=== PATIENT | female | born 1995 | race Two or more races ===

== ENCOUNTER 2022-05-05 09:23 | Outpatient (CLI) | payer BC, SELFPAY ==
--- NOTE | 2022-05-05 09:15 | CRLHL7_ITS ---
For Patients: As a result of the Century Cures Act, medical imaging exams and procedure reports are released immediately into your electronic medical record. You may view this report before your referring provider. If you have questions, please contact your health care provider. INDICATION: Pain TECHNIQUE: Ultrasound pelvis transabdominal and transvaginal for better assessment or to better visualize the endometrium. Real time sonographic images with Spectral and color Doppler imaging of the ovaries were obtained. COMPARISON: None FINDINGS: Uterus: 6.9 centimeter x 3.7 centimeter x 5.07. Normal echotexture of the myometrium. No masses. Endometrium: Transvaginal imaging was performed to better evaluate the endometrium. Millimeters in thickness. No sign of endometrial mass or fluid. Right ovary: 8.6 centimeter x 1.4 centimeter x 3.4 centimeter. No ovarian or adnexal masses. Normal arterial and venous blood flow. Left ovary: 0.7 centimeter x 1.5 centimeter x 2.6 centimeter no ovarian or adnexal masses. Normal arterial and venous blood flow. Cul-de-sac: No significant free fluid. IMPRESSION: Unremarkable pelvic ultrasound. Dictated by Soham Sidhu MD @ 05/05/2022 11:16:40 AM (Electronically Signed)
== END 2022-05-05 09:24 | disposition home or self-care (01) ==
LOC: US 09:25
PROVIDERS: Visit Provider Obstetrics & Gynecology
DX: R10.2 Pelvic and perineal pain (principal)
CPT/HCPCS: 76830; 76856; 93976

== ENCOUNTER 2023-02-08 12:50 | Outpatient (CLI) | payer BC, SELFPAY ==
--- NOTE | 2023-02-08 13:00 | CRLHL7_ITS ---
For Patients: As a result of the Century Cures Act, medical imaging exams and procedure reports are released immediately into your electronic medical record. You may view this report before your referring provider. If you have questions, please contact your health care provider. INDICATION: Evaluate anatomy. COMPARISON: 10/25/2022 TECHNIQUE: Real time downey scale imaging of the fetus was performed as well as color Doppler analysis of the umbilical vessels. FINDINGS: Sonographic imaging demonstrates a single living intrauterine gestation. Fetus demonstrates a regular cardiac rate of 144 beats per minute. Fetus has a longitudinal vertex position. The placenta lies posteriorly without evidence of placenta previa. The edge of the placenta is located 5.4 cm from the internal cervical os. Amniotic fluid volume appears normal. Single deepest vertical pocket: 4.3 cm. The cervix is closed and measures 3.8 cm in length. The composite ultrasound gestational age is calculated at 19 weeks 6 days with an estimated sonographic due date of 06/29/2023. The estimated weight is 313 grams which lies at the 67th %. The following biometric measurements were obtained: Biparietal diameter: 4.6 cm/20 weeks 0 days 73rd% Head circumference: 17.2 cm/19 weeks 5 days 58th% Abdominal circumference: 14.0 cm/19 weeks 3 days 45th% Femur length: 3.7 cm/20 weeks 1 day 71st% The HC/AC ratio measures: 1.22 range (1.08-1.26) On anatomic survey, there is a normal appearance of the cerebral ventricles, cavum septi pellucidi, cisterna magna and cerebellum. The nose, lips, and facial profile appear normal. The cervical, thoracic and lumbar spine are well visualized and appear normal. There is a normal four-chamber heart view and the left and right ventricular outflow tracts appear normal. The diaphragm and stomach appear normal. The kidneys and bladder also appear normal. There is a normal three-vessel cord and cord insertion site. The four extremities appear normal. IMPRESSION: Normal OB ultrasound exam with concordance of clinical and sonographic dating. No intrinsic abnormalities noted on anatomic survey. Dictated by Soham Barrios MD @ 02/09/2023 11:00:49 AM (Electronically Signed)
== END 2023-02-08 12:51 | disposition home or self-care (01) ==
LOC: US 12:51
PROVIDERS: Visit Provider Advanced Practice Midwife
DX: Z34.92 Encounter for supervision of normal pregnancy, unspecified, second trimester (principal); Z3A.19 19 weeks gestation of pregnancy
CPT/HCPCS: 76805

== ENCOUNTER 2023-04-11 10:08 | Outpatient (CLI) | payer BC, SELFPAY | END 2023-04-11 10:09 | disposition home or self-care (01) | LOC: NFLDREF 04-13 04:50 | PROVIDERS: Visit Provider Obstetrics & Gynecology | DX: Z34.93 Encounter for supervision of normal pregnancy, unspecified, third trimester (principal); R05.9 Cough, unspecified; R09.82 Postnasal drip | CPT/HCPCS: 86592 ==

== ENCOUNTER 2023-05-22 10:56 | Outpatient (CLI) | payer BC, SELFPAY | END 2023-05-22 10:57 | disposition home or self-care (01) | PROVIDERS: Visit Provider Obstetrics & Gynecology | DX: L29.9 Pruritus, unspecified (principal); O99.719 Diseases of the skin and subcutaneous tissue complicating pregnancy, unspecified trimester | CPT/HCPCS: 80053; 82239 ==

== ENCOUNTER 2023-05-25 11:24 | Outpatient (CLI) | payer BC, SELFPAY ==
--- NOTE | 2023-05-25 11:30 | CRLHL7_ITS ---
For Patients: As a result of the Century Cures Act, medical imaging exams and procedure reports are released immediately into your electronic medical record. You may view this report before your referring provider. If you have questions, please contact your health care provider. INDICATION: Rule out IUGR TECHNIQUE: Limited transabdominal two-dimensional downey-scale ultrasound examination. COMPARISON: None FINDINGS: There is a living fetus in vertex lie with gestational age of 34 weeks 4 days by LMP and 35 weeks 3 days by today`s measurements. EDC based on LMP is 07/02/2023. BPD: 8.7 cm, 35 weeks 1 day Head circumference: 33.0 cm, 37 weeks 4 days Abdominal circumference: 31.8 cm, 35 weeks 5 days Femur length: 6.5 cm, 33 weeks 2 days The weight is estimated at 2619 grams, the 64th percentile. The heart rate is measured at 134 beats per minute and the rhythm appears regular. The amniotic fluid volume is within normal limits with 4.9 cm. The placenta is posterior and superior to the cervical os. There is no evidence of previa. IMPRESSION: 1. Living fetus in vertex lie with gestational age of 34 weeks 4 days by LMP and 35 weeks 3 days by today`s measurements. EDC based on LMP is 07/02/2023. 2. weight estimated at 2619 grams, the 64th percentile. Dictated by Jani Kline MD @ 05/26/2023 10:28:06 AM (Electronically Signed)
== END 2023-05-25 11:25 | disposition home or self-care (01) ==
LOC: US 11:24
PROVIDERS: Visit Provider Obstetrics & Gynecology
DX: O36.5930 Maternal care for other known or suspected poor fetal growth, third trimester, not applicable or unspecified (principal); Z3A.34 34 weeks gestation of pregnancy
CPT/HCPCS: 76816; 82728

== ENCOUNTER 2023-06-21 16:40 | Inpatient (IN) | payer BC, SELFPAY ==
[2023-06-21] VITALS (9 sets, daily range): BP systolic 92–118; BP diastolic 51–78; PULSE 76–120; TEMP 36.3–36.4; O2SAT 98; BMI 26.6
--- OUTSIDE RECORDS SUMMARY | 2023-06-21 16:44 | XMS_ITS | Patient Health Record ---
Author Name Unknown Organization [facility] Address [address] [place] [address] Care Team Providers Care Circulation Sales Representative Name Role Phone None, No PCP Primary Care Provider UnavailBianka Diego Unavailable [phone] KarineXochitl blood Unavailable [phone] Godwin Daysi Unavailable [phone] Sachi Proctor Unavailable [phone] ALLERGIES No Known Allergies RESULTS Component Value Reference Range Notes Urinalysis, Routine - IH Reviewed date:11/24/2022 11:38:34 AM Interpretation: Performing Lab: Notes/Report: Urine Color light yellow Yellow - Fely Appearance clear Clear - Glucose neg Bilirubin neg Ketone neg Specific [place] 1.010 Blood neg pH 6.0 Protein neg Urobilinogen 0.2 Nitrite neg Leukocytes neg Glucose Bilirubin Ketones Specific [place] Occult Blood pH Protein Urobilinogen Nitrite Leukocytes HEPATITIS C AB W/REFL TO HCV RNA, QN, PCR Reviewed date:12/02/2022 04:51:24 PM Interpretation: Performing Lab:[place], [facility] [id number] [facility], [facility]IpwtTL[address] Chris Gunter Notes/Report: HEPATITIS C ANTIBODY NON-REACTIVE NON-REACTIVE HCV antibody was non-reactive. There is no laboratory evidence of HCV infection. In most cases, no further action is required. However, if recent HCV exposure is suspected, a test for HCV RNA (test code 09280) is suggested. For additional information please refer to http://education.[employer]/faq/FAQ22v 1 (This link is being provided for informational/ educational purposes only.) VARICELLA ZOSTER VIRUS ANTIB EDDIE (IGG) Reviewed date:11/28/2022 12:28:53 PM Interpretation: Performing Lab:[place] [id number] T[address], [employer] EnergyJvwmRB[address] Chris Gunter Notes/Report: VARICELLA ZOSTER VIRUS ANTIBODY (IGG) 940.90 Index Interpretation --------- <135.00 Negative - Antibody not detected 135.00 - 164.99 Equivocal > or = 165.00 Positive - Antibody detected A positive result indicates that the patient has antibody to VZV but does not differentiate between an active or past infection. The clinical diagnosis must be interpreted in conjunction with the clinical signs and symptoms of the patient. This assay reliably measures immunity due to previous infection but may not be sensitive enough to detect antibodies induced by vaccination. Thus, a negative result in a vaccinated individual does not necessarily indicate susceptibility to VZV infection. A more sensitive test for vaccination-induced immunity is Varicella Zoster Virus Antibody Immunity Screen, ACIF. CULTURE, URINE, ROUTINE Reviewed date:12/06/2022 11:12:12 AM Interpretation: Performing Lab:[place] [facility] [id number] Telly, [employer] [id number] Chris Gunter Notes/Report: SPLIT 11/24/2022 FROM [id number], [id number] CULTURE, URINE, ROUTINE SEE NOTE CULTURE, URINE, ROUTINE Micro Number: [id number] Test Status: Final Specimen Source: Urine, clean catch Specimen Quality: Adequate Result: 1,000-9,000 CFU/ML of Group B Streptococcus isolated Beta-hemolytic streptococci are predictably susceptible to Penicillin and other beta-lactams. Susceptibility testing not routinely performed. Please contact the laboratory within 3 days if susceptibility testing is desired. Comment: Erythromycin and clindamycin are not recommended for treatment of urinary tract infections, but clindamycin may be useful for treatment of rectovaginal colonization or infection. Any amount of group B Streptococcus in urine specimens obtained from females is a marker of genital tract colonization. If this patient is , please refer to ACOG guidelines for appropriate screening and management of women. COMMENT: Mixed genital flaca isolated. These superficial bacteria are not indicative of a urinary tract infection. No further organism identification is warranted on this specimen. If clinically indicated, recollect clean-catch, mid-stream urine and transfer immediately to Urine Culture Transport Tube. Pap with reflex HPV if ASCUS (under 30 yrs) Reviewed date:11/28/2022 12:25:07 PM Interpretation: Performing Lab:Per [facility]Darron [id number] Chris Gunter Notes/Report: MULTIPLE TESTING PRIORITIES; ROUTINE TESTING TO FOLLOW. CLINICAL INFORMATION: Pregna nt LMP: PREV. PAP: 2019 PREV. BX: NONE GIVEN SOURCE: Cervix, Endocer vix STATEMENT OF ADEQUACY: Satisfactory for evaluation. Endocervical/transformat ion zone component present. INTERPRETATION/RESULT: Cytology Results: Negative for intraepithelial lesion or malignancy. COMMENT: This Pap test has been evaluated with computer assisted technology. COMMAND CENTER ANALYST: SALINAS HARRIS(ASCP) CT Screening location: [place] [address] COMMENT EXPLANATORY NOTE: The Pap is a screening test for cervical cancer. It is not a diagnostic test and is subject to false negative and false positive results. It is most reliable when a satisfactory sample, regularly obtained, is submitted with relevant clinical findings and history, and when the Pap result is evaluated along with historic and current clinical information. OBSTETRIC PANEL W/FOURTH GEN ERATION HIV Reviewed date:11/28/2022 12:25:41 PM Interpretation: Performing Lab:Per [facility] [id number] [facility] [id number] Chris Gunter Notes/Report: WHITE BLOOD CELL COUNT 8.4 3.8-10.8 Thousand/uL RED BLOOD CELL COUNT 4.92 3.80-5.10 Million/uL HEMOGLOBIN 14.9 11.7-15.5 g/dL HEMATOCRIT 44.3 35.0-45.0 % MCV 90.0 80.0-100.0 fL MCH 30.3 27.0-33.0 pg MCHC 33.6 32.0-36.0 g/dL RDW 12.1 11.0-15.0 % PLATELET COUNT 236 140-400 Thousand/uL MPV 12.2 7.5-12.5 fL ABSOLUTE NEUTROPHILS 5846 1708-1915 cells/uL ABSOLUTE LYMPHOCYTES 7978 179-9049 cells/uL ABSOLUTE MONOCYTES 697 200-950 cells/uL ABSOLUTE EOSINOPHILS 118 15-500 cells/uL ABSOLUTE BASOPHILS 50 0-200 cells/uL NEUTROPHILS 69.6 LYMPHOCYTES 20.1 MONOCYTES 8.3 EOSINOPHILS 1.4 BASOPHILS 0.6 ANTIBODY SCREEN, RBC W/REFL ID, TITER AND AG NO ANTIBODIES DETECTED Reference range No antibodies detected This assay is a screening test for the detection of red blood cell antibodies. The test is not to be used for pretransfusion screening or for the medical management of an alloimmunized . ABO GROUP B RH TYPE RH(D) POSITIVE For additional information, please refer to http://[employer]/faq/XIA570 (This link is being provided for informational/ educational purposes only.) RPR (DX) W/REFL TITER AND CONFIRMATORY TESTING NON-REACTIVE NON-REACTIVE HEPATITIS B SURFACE ANTIGEN NON-REACTIVE NON-REACTIVE For additional information, please refer to http://[employer]/faq/FWY307 (This link is being provided for informational/ educational purposes only.) RUBELLA AB (IGG), IMMUNE STATUS 1.26 Index Interpretation ----- <0.90 Not consistent with immunity 0.90-0.99 Equivocal > or = 1.00 Consistent with immunity The presence of rubella IgG antibody suggests immunization or past or current infection with rubella virus. HIV AG/AB, 4TH GEN NON-REACTIVE NON-REACTIVE HIV-1 antigen and HIV-1/HIV-2 antibodies were not detected. There is no laboratory evidence of HIV infection. PLEASE NOTE: This information has been disclosed to you from records whose confidentiality may be protected by state law. If your state requires such protection, then the state law prohibits you from making any further disclosure of the information without the specific written consent of the person to whom it pertains, or as otherwise permitted by law. A general authorization for the release of medical or other information is NOT sufficient for this purpose. For additional information please refer to http://[employer]/faq/PLG105 (This link is being provided for informational/ educational purposes only.) The performance of this assay has not been clinically validated in patients less than 2 years old. Urinalysis, Routine - IH Reviewed date:12/15/2022 03:14:15 PM Interpretation: Performing Lab: Notes/Report: Urine Color light yellow Yellow - Fely Appearance clearn Clear - Glucose neg Bilirubin neg Ketone neg Specific [place] 1.010 Blood neg pH 8.0 Protein neg Urobilinogen 0.2 Nitrite neg Leukocytes neg Glucose Bilirubin Ketones Specific [place] Occult Blood pH Protein Urobilinogen Nitrite Leukocytes BD Affirm Reviewed date:12/15/2022 11:14:40 AM Interpretation: Performing Lab: Notes/Report: Yeast NEG Negative - Bacterial Vaginosis POS Negative - Trichomoniasis NEG Negative - CULTURE, URINE, ROUTINE Reviewed date:12/19/2022 11:39:23 AM Interpretation: Performing Lab:[place], [facility] [id number], [facility] CenterHkldUS[address] Chris Gunter Notes/Report: CULTURE, URINE, ROUTINE SEE NOTE CULTURE, URINE, ROUTINE Micro Number: [id number] Test Status: Final Specimen Source: Urine, clean catch Specimen Quality: Adequate Result: No Growth BD Affirm Reviewed date:01/09/2023 01:12:01 PM Interpretation: Performing Lab: Notes/Report: Yeast NEG Negative - Bacterial Vaginosis POS Negative - Trichomoniasis NEG Negative - REASON FOR REFERRAL No Information MEDICATIONS Medication SIG (Take, Route, Fr equency, Duration) Notes Start Date End Date Status metroNIDAZOLE 0.75 % 1 applicatorful at bedtime Vaginal Once a day for 5 days 01/11/2023 Ac tive Ritual Active SOCIAL HISTORY Tobacco Use: Social History Observation Description Date Details (start date - stop date) Never Smoker NA - NA Sex Assigned At : Social History Observation Description Sex Assigned At Unknown Tobacco Use/Smoking Question Answer Notes Are you a nonsmoker PROBLEMS Problem Type ICD Code Onset Dates Problem Status W/U Status Risk SNOMED Code Notes Problem Uterine pain (N94.89) Active confirmed Problem Vagina itching (N89.8) Active confirmed Noninflammatory disorder of the vagina (72866229) VITAL SIGNS Blood pressure diastolic 68 mm Hg 01/09/2023 Height 66.25 in 01/09/2023 Blood pressure systolic 90 mm Hg 01/09/2023 Weight 156.4 lbs 01/09/2023 BMI 25.053 kg/m2 01/09/2023 Encounters Encounter Location Date Provider Diagnosis [facility] [address] [place] [address] 01/09/2023 Xochitl Hoffoss [facility] [address] [place] [address] 11/24/2022 Bianka Patel Encounter for supervision of normal first in first trimester Z34.01 ; 8 weeks gestation of Z3A.08 and Encounter for gynecological examination (general) (routine) without abnormal findings Z01.[address] [address] 12/14/2022 Xochitl Hoffoss Cervical discharge N89.8 [facility] [address] [place] [address] 12/14/2022 Xochitl Hoffoss Uterine pain N94.89 [facility] [address] [place] [address] 12/23/2022 Sachi Cardozo Encounter for screening for chromosomal anomalies Z36.[address] [address] 01/09/2023 Xochitl Hoffoss Vagina itching N89.[address] [address] 11/24/2022 Bianka Patel Primigravida in firs t trimester Z34.01 ; History of abnormal cervical Pap smear Z87.42 and 8 weeks gestation of Z3A.[address] [address] 12/23/2022 Sachi Cardozo [address] [address] 01/20/2023 Daysi Connelly Encounter for supervision of normal first , second trimester Z34.[address] [address] 12/14/2022 Xochitl Hoffoss Vaginal discharge N8 9.8 and Uterine pain N94.[address] [address] 12/23/2022 Sachi Carodzo 12 weeks gestation of Z3A.[address] [place] [address] 01/09/2023 Xochitl Ulrich Other specified related conditions, second trimester O26.892 and Other specified noninflammatory disorders of vagina N89.8 [facility] [address] [place] [address] 11/24/2022 Bianka Patel Encounter for supervision of other normal , unspecified trimester Z34.80 and 8 weeks gestation of Z3A.[address] [address] 11/24/2022 Bianka Patel [address] [address] 11/28/2022 Bianka Patel [address] [address] 12/02/2022 Bianka Patel [facility] [address] [place] [address] 12/12/2022 Bianka Patel [facility] [address] [place] [address] 12/15/2022 Xochitl Ulrich [facility] [address] [place] [address] 12/30/2022 Sachi Lease [facility] [address] [place] [address] 12/30/2022 Sachi Lease [facility] [address] [place] [address] [place] [address] 01/11/2023 Xochitl Ulrich [facility] [address] [place] [address] 01/02/2023 Bianka Patel [address] [address] 01/09/2023 Bianka Patel [facility] [address] [place] [address] 01/11/2023 Xochitl Ulrich [facility] [address] [place] [address] 01/13/2023 Bianka Patel [facility] [address] [place] [address] 02/06/2023 Bianka Patel [facility] [address] [place] [address] 02/13/2023 Bianka Patel ASSESSMENTS Encounter Date Diagnosis Assessment Notes Treatment Notes Treatment Clinical Notes 11/24/2022 Encounter for supervision of other normal , unspecified trimester (ICD-10 - Z34.80) 11/24/2022 8 weeks gestation of (ICD-10 - Z3A.08) 11/24/2022 Primigravida in firs t trimester (ICD-10 - Z34.01) Reviewed care/visits, delivery care/delivery hospitals, optional screenings (NT, Panorama, and AFP1) PreTRM, and Horizon genetic carrier screening. Discussed comfort measures for nausea, travel, exercise, nutrition, safe food handling, OTC medication use during , and 1st trimester warning signs. RTC in 4 weeks for routine OB visit. 11/24/2022 History of abnormal cervical Pap smear (ICD-10 - Z87.42) Declined Pap test today Encourage to complete MEAGAN for past medical record for pap test 11/24/2022 8 weeks gestation of (ICD-10 - Z3A.08) 11/24/2022 Encounter for supervision of normal first in first trimester (ICD-10 - Z34.01) 12/14/2022 Vaginal discharge (ICD-10 - N89.8) 12/23/2022 12 weeks gestation o f (ICD-10 - Z3A.12) 12/23/2022 Encounter for screening for chromosomal anomalies (ICD-10 - Z36.0) 01/09/2023 Other specified noninflammatory disorders of vagina (ICD-10 - N89.8) 01/09/2023 Other specified related conditions, second trimester (ICD-10 - O26.892) 20 minutes in chart prep, discussion with patient, exam, plan of care and documenting. 01/20/2023 Encounter for supervision of normal first , second trimester (ICD-10 - Z34.02) 01/09/2023 Vagina itching (ICD-10 - N89.8) 12/14/2022 Uterine pain (ICD-10 - N94.89) Push fluids. Discussed treating for BV will help with uterine cramping. See chiro for MSK evaluation 12/14/2022 Cervical discharge (ICD-10 - N89.8) 12/14/2022 Uterine pain (ICD-10 - N94.89) 11/24/2022 Encounter for gynecological examination (general) (routine) without abnormal findings (ICD-10 - Z01.419) 11/24/2022 8 weeks gestation of (ICD-10 - Z3A.08) 11/24/2022 Other Call for questions or concerns. 35 minutes spent in chart prep, counseling and coordination of care, and documenting clinic visit. 12/14/2022 Other 20 minutes in chart prep, discussion with patient, plan of care, exam and documenting. PLAN OF TREATMENT Pending Test Test Name Order Date Panorama Test 12/23/2022 Insurance Providers Payer Name Payer Address Payer Phone Subscriber Number Group Number Insured Name Patient Relationship to Insured Coverage Start Date Coverage End Date BC [address] MELODIE LEON [phone] [id number] Parminder Guillen Self - patient is the insured MEDICAL (GENERAL) HISTORY Medical History History ICD Code depression/anxiety
--- NOTE | 2023-06-21 17:00 | P.LDBA_ITS ---
Subjective History of Present Illness Date Seen: 06/21/23 Narrative: Patient is being admitted to Labor and Delivery for IOL. She is a 27 year old at 38 3/7 weeks gestation. Her full history and physical was dictated by Dr. PATEL on 06/21/23. Please see this for details. Patient has been dealing with hemorrhoids since the beginning of . She has avoided constipation, utilizing Miralax. She has utilized preparation H products, sitz baths and soaking her bottom in a high concentration of sugar but symptoms have progressively worsened. Patient had to visit ED at [facility] that is close to her house this past Monday06/18/23 due to severe pain. Upon evaluation patient states that OB diamond wheel molder evaluated her and she was told that hemorrhoids were not tense, but they were extremely tender to palpation, she had hydrocortisone suppository placed, and was given Vistaril and discharged home. Patient was unable to work this week and reached out to me to discuss possibility of IOL, as we had already discussed that this was the only real treatment. Upon discussion, I was concerned that she had remained in bed most of the time since Monday after discharge. Upon discussion of risks vs benefits of waiting, both parties understand it reasonable to move forward with IOL at this time. Patient does states that this morning at around 3am she noticed some bleeding associated with hemorrhoid and a slight improvement in pain that allowed mobility. Specific Issues/Plans Transfer from [facility] at 16 4/7 weeks gestation Partner: Guido (He is a Physician) Call CGM for delivery Blood Type: B POSITIVE H&P by CGM on 06/16/23 1. GBS + in urine at NOB -Needs ampicillin in labor, ok with 2. Depression/Anxiety Not on meds and not seeing a therapist, feels it is well managed 3. BV x 2 in early Treated with vaginal and oral flagyl 4. Hemorrhoids, bleed occasionally with wiping OTC measures, increased hydration, tucks pads, anusol, colace/bowel regimen 5. Body itchiness at 34 weeks: CMP and total bile acids normal. Growth US 05/25/23: EFW 64%, SIMONE WNL OB Labs: 11/28/2022 Blood type: B+, antibody screen negative. Hgb: 14.9 Platelets: 236 Rubella: Immune Varicella: Immune RPR: non-reactive HBsAg: non-reactive Hep C: Non-reactive HIV: negative UC: GBS 1,000-9,000 CFU, not indicative of treatment GC/Chlamydia: negative/negative Pap (11/24/2022): NILM Genetic screening: Panorama, Low risk, It's a Boy! IMAGINst trimester: 11/24/2022. 8.4 weeks by LMP, 8.5 weeks gestation by US, MARIA GUADALUPE 07/02/2023 by LMP. FHR 171. Unremarkable findings. COVID: fully vaccinated and boosted 1 time. Flu: 03/10/23 TDAP: 04/25/23 32wk Mental Health: 05/09/2023 RSV vaccine: 05/25/23 OB - Problem Based A/P Additional Plan (1) Hemorrhoids during : Status: Acute (2) Group B streptococcal bacteriuria: Problem details: With NOB labs. No indication for treatment. Does not need GBS swab at 37 weeks Status: Acute (3) Elective induction of labor planned: Status: Acute Plan 1. IOL to start with mechanical dilation, cook catheter in place. If able will start Oxytocin low dose overnight. AROM in the morning. 2. GBS positive by UC at start of . Will start antibiotics per protocol at the start of IV Oxytocin. 3. Pain management as needed overnight planning IV Tylenol, may consider opioids. Patient is planning an epidural. OB Exam Physical Exam Vital signs: Pulse BP Pulse Ox 120 H 118/78 98 06/21/23 16:53 06/21/23 16:53 06/21/23 16:54 Detailed Labor and Delivery Exam Patient Gravid: Yes Dilation (cm): 1 Effacement (%): 60 Cervix position: mid Consistency: soft Tachysystole: No Fetus (Single) Station: -2 Amniotic Membrane Status: intact Heart Rate Baseline: 130 Monitor Accelerations: Present Monitor Decelerations: None Long-Term Variability: Moderate (6-25)
[2023-06-21 18:07] LABS: Basophils Absolute Auto 0.03 K/uL (0.00-0.30); Basophils Percent Auto 0.4 % (0.0-3.0); Eosinophils Absolute Auto 0.07 K/uL (0.00-0.50); Eosinophils Percent Auto 0.9 % (0.0-7.0); Immature Granulocytes Abs Auto 0.02 K/uL (0.00-0.30); Immature Granulocytes Pct Auto 0.2 %; Lymphocytes Absolute Auto 1.99 K/uL (0.90-2.90); Lymphocytes Percent Auto 24.5 % (20-44); Mean Corpuscular HGB Conc 32 gm/dL (32-36); Mean Corpuscular Hemoglobin 28 pg (26-34); Mean Corpuscular Volume 85 fL (80-100); Monocytes Percent Auto 9.4 % (0.0-11.0); Neutrophils Absolute Auto 5.25 K/uL (1.7-7.0); Neutrophils Percent Auto 64.6 % (42.0-72.0); Platelet Count* 200 K/uL (140-440); RDW Coefficient of Variation % 14.7 % (11.5-15.5); Red Blood Count 3.98 m/uL (4.00-5.20); White Blood Count* 8.12 K/uL (4.50-11.00)
[2023-06-21 18:09] LABS: Slide Review Reflex No
[2023-06-21] MEDS: ACETAMINOPHEN INJ 1,000 MG/100 ML VIAL 400 MG IVPB (18:59)
[2023-06-21] MEDS: MORPHINE 10 MG/ML inj IM (19:00)
[2023-06-21] MEDS: hydrOXYzine pamoate 25 MG CAPSULE 100 MG PO (19:00)
[2023-06-21] MEDS: ONDANSETRON 2 MG/ML inj 4 MG IV (19:44)
[2023-06-21] MEDS: AMPICILLIN 2 GM in 0.9 % SODIUM CHLORIDE Mini-bag 100 ML IVPB (21:35)
[2023-06-21] MEDS: OXYTOCIN 30 unit/500 ML in NS 30 UNIT/500 ML BAG IVPB (21:35)
[2023-06-21] MEDS: LACTATED RINGERS 1000 ML 1,000 ML 124 ML IV (21:52)
[2023-06-22] VITALS (130 sets, daily range): BP systolic 83–206; BP diastolic 49–91; PULSE 60–131; TEMP 36.3–37.1; O2SAT 82–100
[2023-06-22] MEDS: AMPICILLIN 1 GM in 0.9 % SODIUM CHLORIDE Mini-bag 100 ML IVPB ×5 (01:36→17:59)
[2023-06-22] MEDS: LACTATED RINGERS 1000 ML 1,000 ML 119 ML IV (03:42)
[2023-06-22] MEDS: ACETAMINOPHEN INJ 1,000 MG/100 ML VIAL 400 MG IVPB (05:01)
--- NOTE | 2023-06-22 07:10 | P.OBPN_ITS ---
Subjective Time Seen by Provider: 07:10 Date Seen: 06/22/23 Narrative: Feeling better Objective Vital Signs: Last Vital Signs Temp 97.6 F 06/22/23 04:15 Pulse 71 06/22/23 06:37 BP 109/66 06/22/23 06:37 Pulse Ox 97 06/22/23 00:24 Pelvic Exam Dilation (cm): 3 Effacement (%): 75 Station: -2 Contractions Monitor mode: External Contraction pattern: Regular Contraction intensity: Moderate Assessment Assessment: induction ongoing Station: -2 Status: Category l Heart Rate Baseline: 120 Ad Terminal Makeup Operator Variability: Moderate (6-25) Monitor Accelerations: Present Monitor Decelerations: None Plan Plan: Cook catheter removed at 530am, IV Oxytocin ongoing. Patient has received antibiotic prophylaxis appropriately overnight. She was able to rest overnight and describes this is the best I have felt in many days. Utilized Morphine, Vistaril and IV acetaminophen overnight. Discussed with patient epidural placement and she would like to complete this prior to AROM. Will consult with general surgery for evaluation of hemorrhoids today or .
[2023-06-22] MEDS: LACTATED RINGERS 1000 ML 1,000 ML 500 ML IV (08:11)
[2023-06-22] MEDS: hydrOXYzine pamoate 25 MG CAPSULE 100 MG PO (09:28)
[2023-06-22] MEDS: MORPHINE 10 MG/ML inj IM (09:28)
[2023-06-22] MEDS: ROPIVACAINE 0.2% 100 ml 100 ML 12 MG EPIDURAL ×3 (11:21→18:53)
--- NOTE | 2023-06-22 11:30 | PM.ANBPRC ---
[facility] Medical History Bacterial vaginosis ?N76.0 - Acute vaginitis (ICD-10) ?B96.89 - Other specified bacterial agents as the cause of diseases classified elsewhere (ICD-10) Hemangioma of abdominal wall ?D18.09 - Hemangioma of other sites (ICD-10) Pap smear abnormality of cervix/human papillomavirus (HPV) positive ?R87.618 - Other abnormal cytological findings on specimens from cervix uteri (ICD-10) Surgical History History of colposcopy ?Z98.890 - Other specified postprocedural states (ICD-10) Social History Narrative: SOCIAL Education: Bachelors Work: [employer], remoted Partner: Guido, Physician Lives with: Guido Pets: dog 2 Abuse: Denies past/present Special Diet: Denies Ok with a blood transfusion: yes Culture or protestant beliefs: denies RISK FACTORS Exercise Times/wk: Walking a few times per week, resistance bands Depression/Anxiety: hx of anxiety; no therapist or medication Mood is feeling Seat Belt Use: Routinely Smoking: Denies past/present Alcohol/day: Denies while ; socially Caffeine: 1st trimester, not since 12 weeks Drug Use: Denies past/present Chicken Pox: Vaccinated, revaccinated as an adult MRSA: Denies What is your current living situation?: I presently have a place to live Problems where you live: no known problems In the past 12 months, utilities in danger of being shut off: no In past 12 months, lack of transportation kept you from medical appts, meetings, work, or getting things needed for daily living: no In the past 12 mos, have been you worried that your food would run out before you had money to buy more?: never true In the past 12 mos, the food you bought just didn't last and you didn't have money to buy more?: never true Smoking Status: Never smoker How often does anyone, including family, friends and others, physically hurt you: never How often does anyone, including family, friends and others, insult or talk down to you: never How often does anyone, including family, friends and others, threaten you with harm: never How often does anyone, including family, friends and others, scream or curse at you: never Little interest or pleasure in doing things: several days Feeling down, depressed, or hopeless: several days Meds Home Medications and Allergies Home Medications Medication Instructions Recorded Confirmed Type PNV 153-FA 400 mcg-om3 35 mg-dha 2 tab PO DAILY 01/19/23 06/21/23 History 25 mg-epa 5 mg-fish oil chew tablet ( Gummies) magnesium oxide 25 mg PO PRN PRN 04/11/23 06/21/23 History Allergies Allergy/AdvReac Type Severity Reaction Status Date / Time No Known Drug Allergies Allergy Verified 06/21/23 20:33 Results Labs Labs: Laboratory Results - last 24 hr 06/21/23 17:57 WBC 8.12 RBC 3.98 L Hgb 11.0 L Hct 34.0 MCV 85 MCH 28 MCHC 32 RDW Coeff of Kiana 14.7 Plt Count 200 Neut % (Auto) 64.6 Lymph % (Auto) 24.5 [place] % (Auto) 9.4 Eos % (Auto) 0.9 Baso % (Auto) 0.4 Neut # (Auto) 5.25 Lymph # (Auto) 1.99 [place] # (Auto) 0.80 Eos # (Auto) 0.07 Baso # (Auto) 0.03 Abs Immat Gran (auto) 0.02 Imm/Tot Granulo (auto) 0.2 Blood Type B Positive Antibody Screen NEGATIVE Vital Signs Vital Signs: Last Vital Signs Temp 98.2 F 06/22/23 08:37 Pulse 93 06/22/23 11:28 BP 126/62 06/22/23 11:28 Pulse Ox 100 06/22/23 11:29 Weight: 77.292 kg Height: 170.18 cm Anesthesia Procedures Epidural Insertion Patient Location: OB Start Time: 10:45 Stop Time: 11:40 Start Date: 06/22/23 Stop Date: 06/22/23 Reason for Block: procedure for pain Patient Position: sitting Performed By: Micah Long Preanesthetic Checklist: IV checked, risks and benefits discussed, surgical consent, monitors and equipment checked, pre-op evaluation, timeout performed and anesthesia consent Prep: chlorhexidine gluconate Monitoring: blood pressure monitoring, continuous pulse oximetry and heart rate Approach: midline Vertebral Space: lumbar (1-5) Epidural Technique: ANURADHA saline Needle Type: Tuohy needle Injection Technique: continuous catheter Needle gauge: 17 Needle Length (cm): 10 cm Needle Insertion Depth (cm): 6 Catheter Gauge: 19 Catheter Type: multi-orifice Catheter at skin depth (cm): 12 Test Dose Result: negative and lidocaine 1.5% with epinephrine 1 to 200,000
[2023-06-22] MEDS: LACTATED RINGERS 1000 ML 1,000 ML 525 ML IV ×2 (11:45→18:19)
--- NOTE | 2023-06-22 12:52 | P.OBPN_ITS ---
Subjective Date Seen: 06/22/23 Narrative: Okay Objective Vital Signs: Last Vital Signs Temp 97.4 F L 06/22/23 11:46 Pulse 67 06/22/23 12:46 BP 101/55 L 06/22/23 12:46 Pulse Ox 100 06/22/23 12:34 Pelvic Exam Dilation (cm): 5 Effacement (%): 75 Station: -2 Contractions Monitor mode: External Contraction pattern: Regular Contraction intensity: Moderate Pitocin Rate (mU/min): 9 Assessment Assessment: induction ongoing Station: -2 Amniotic Membrane Status: AROM Status: Category l Heart Rate Baseline: 115 Retirement Variability: Moderate (6-25) Monitor Accelerations: Present Monitor Decelerations: None Plan Plan: Epidural in place, just AROMed. Has progressed well. Will continue current management.
[2023-06-22] MEDS: PHENYLEPHRINE 100 MCG/ML SYRINGE IVP (13:06)
[2023-06-22] MEDS: fentaNYL 100 MCG/2 ML inj IVP (17:29)
--- NOTE | 2023-06-22 17:54 | PM.ANBPRC ---
[facility] Medical History Bacterial vaginosis ?N76.0 - Acute vaginitis (ICD-10) ?B96.89 - Other specified bacterial agents as the cause of diseases classified elsewhere (ICD-10) Hemangioma of abdominal wall ?D18.09 - Hemangioma of other sites (ICD-10) Pap smear abnormality of cervix/human papillomavirus (HPV) positive ?R87.618 - Other abnormal cytological findings on specimens from cervix uteri (ICD-10) Surgical History History of colposcopy ?Z98.890 - Other specified postprocedural states (ICD-10) Social History Narrative: SOCIAL Education: Bachelors Work: [employer], remoted Partner: Guido, Physician Lives with: Guido Pets: dog 2 Abuse: Denies past/present Special Diet: Denies Ok with a blood transfusion: yes Culture or druze beliefs: denies RISK FACTORS Exercise Times/wk: Walking a few times per week, resistance bands Depression/Anxiety: hx of anxiety; no therapist or medication Mood is feeling Seat Belt Use: Routinely Smoking: Denies past/present Alcohol/day: Denies while ; socially Caffeine: 1st trimester, not since 12 weeks Drug Use: Denies past/present Chicken Pox: Vaccinated, revaccinated as an adult MRSA: Denies What is your current living situation?: I presently have a place to live Problems where you live: no known problems In the past 12 months, utilities in danger of being shut off: no In past 12 months, lack of transportation kept you from medical appts, meetings, work, or getting things needed for daily living: no In the past 12 mos, have been you worried that your food would run out before you had money to buy more?: never true In the past 12 mos, the food you bought just didn't last and you didn't have money to buy more?: never true Smoking Status: Never smoker How often does anyone, including family, friends and others, physically hurt you: never How often does anyone, including family, friends and others, insult or talk down to you: never How often does anyone, including family, friends and others, threaten you with harm: never How often does anyone, including family, friends and others, scream or curse at you: never Little interest or pleasure in doing things: several days Feeling down, depressed, or hopeless: several days Meds Home Medications and Allergies Home Medications Medication Instructions Recorded Confirmed Type PNV 153-FA 400 mcg-om3 35 mg-dha 2 tab PO DAILY 01/19/23 06/21/23 History 25 mg-epa 5 mg-fish oil chew tablet ( Gummies) magnesium oxide 25 mg PO PRN PRN 04/11/23 06/21/23 History Allergies Allergy/AdvReac Type Severity Reaction Status Date / Time No Known Drug Allergies Allergy Verified 06/21/23 20:33 Results Labs Labs: Laboratory Results - last 24 hr 06/21/23 17:57 WBC 8.12 RBC 3.98 L Hgb 11.0 L Hct 34.0 MCV 85 MCH 28 MCHC 32 RDW Coeff of Kiana 14.7 Plt Count 200 Neut % (Auto) 64.6 Lymph % (Auto) 24.5 [place] % (Auto) 9.4 Eos % (Auto) 0.9 Baso % (Auto) 0.4 Neut # (Auto) 5.25 Lymph # (Auto) 1.99 [place] # (Auto) 0.80 Eos # (Auto) 0.07 Baso # (Auto) 0.03 Abs Immat Gran (auto) 0.02 Imm/Tot Granulo (auto) 0.2 Blood Type B Positive Antibody Screen NEGATIVE Vital Signs Vital Signs: Last Vital Signs Temp 97.4 F L 06/22/23 11:46 Pulse 125 H 06/22/23 17:51 BP 126/83 06/22/23 17:51 Pulse Ox 92 06/22/23 17:43 Weight: 77.292 kg Height: 170.18 cm Anesthesia Procedures Epidural Insertion Patient Location: OB Start Time: 17:00 Stop Time: 17:54 Start Date: 06/22/23 Stop Date: 06/22/23 Reason for Block: procedure for pain Patient Position: sitting Performed By: Kenton Aguila Preanesthetic Checklist: IV checked, risks and benefits discussed, surgical consent, monitors and equipment checked, pre-op evaluation, timeout performed and anesthesia consent Prep: chlorhexidine gluconate Monitoring: blood pressure monitoring, continuous pulse oximetry and heart rate Approach: midline Vertebral Space: lumbar (1-5) Needle Type: Tuohy needle Injection Technique: continuous catheter Needle gauge: 17 Needle Length (cm): 10 cm Needle Insertion Depth (cm): 7 Catheter Gauge: 19 Catheter Type: multi-orifice Catheter at skin depth (cm): 13 Test Dose Result: negative and lidocaine 1.5% with epinephrine 1 to 200,000
[2023-06-22] MEDS: LIDOCAINE 2% (PF) 5 ML VIAL EPIDURAL (18:23)
[2023-06-22] MEDS: ROPIVACAINE 0.2 % PF 10 ML INJ 20 MG EPIDURAL (18:23)
--- NOTE | 2023-06-22 20:37 | PM.OBPNL ---
Subjective Date Seen: 06/22/23 Narrative: Tired Objective Vital Signs: Last Vital Signs Temp 98.7 F 06/22/23 19:20 Pulse 100 06/22/23 20:26 BP 112/58 L 06/22/23 20:26 Pulse Ox 100 06/22/23 18:16 Pelvic Exam Dilation (cm): 9 Effacement (%): 100 Station: 0 Contractions Monitor mode: External Contraction pattern: Regular Contraction intensity: Strong/Firm Pitocin Rate (mU/min): 9 Assessment Assessment: induction ongoing Station: 0 Amniotic Membrane Status: AROM Status: Category l Heart Rate Baseline: 120 Skilled Nursing Variability: Moderate (6-25) Monitor Accelerations: Present Monitor Decelerations: Early Plan Plan: Patient had original epidural catheter removed due to poor placement and coverage of pain mostly on her right side only. A new epidural catheter has been placed, then air got trapped in the line and anesthesia had to re evaluate. Pain has been well covered, she does continue to experience pressure discomfort with contractions. Cervix is a rim. Bedside US does show baby to be OP. Will try position changes, talked to her about manual rotation, or just pushing after complete dilation is achieved since OP babies are harder to deliver vaginally but doable. Will plan to re evaluate in 1 hour, hopefully we can start pushing and evaluate descent.
[2023-06-22] MEDS: KETOROLAC 30 MG/ML inj IVP (22:36)
--- NOTE | 2023-06-22 22:41 | W.PM.OBVAGDE ---
OB Procedure Vag Delivery Mother Details Mother Details: The patient is a 27 year-old, 1, Para 0, admitted on 06/21/23 at 38 3/7 Days gestation. For IOL in the setting of thrombosed hemorrhoids with worsening pain, and significantly interfering with mobility. : 1 Para: 1 Weeks Gestation: 38.3 Admission Date: 06/21/23 Additional Details Amniotic Membrane Status: AROM Amniotic Membrane Rupture Date: 06/22/23 Amniotic Membrane Rupture Time: 12:30 Amniotic Membrane Fluid Description: Clear Analgesia/Anesthesia Type: Epidural and Fentanyl Waterbirth: No Pitcoin: Yes Intrapartal Events: Labor Induction Induction Method: Intracervical balloon catheter, per pitocin protocol and AROM Labor Onset: 16:00 Complete: 21:13 Pushin:36 Heart: heart tones during second stage were category 2. Decelerations with progressive descent consistent with head compression. Delivery Details Delivery Date: 06/22/23 Delivery Time: 22:02 Route of delivery: Gender: Male Viability: Alive; Heart Rate Present Position at Delivery: OA Delivery Details: Delivered over intact perineum via spontaneous vaginal delivery. was placed on maternal abdomen.? Cord was clamped and cut after a 30-60 second delay. Nose and mouth were bulb suctioned.? Infant weight pending. 1 Minute Interval Total Score: 8 5 Minute Interval Total Score: 9 Additional Details Shoulder Dystocia: No Placenta Delivery Time: 22:12 Placental Delivery Description: Spontaneous Delivery repair: Vicryl (Right periurethral bleeding, vicryl 4-0 interrupted, small vaginal 1st degree bleeding repaired with chromic 2-0 figure of 8.) and Chromic Procedure Done: Global Blood Loss: 100 Laceration: Periurethral - 1st Degree Episiotomy Description: None Blood Loss Measurement Type: QBL Bakri Used: No Sponge/Need Count Correct: Yes Cord Vessel Description: 3 Vessels Event Summary Status: Mother and were stable after delivery. Disposition: floor
[2023-06-23] VITALS (7 sets, daily range): BP systolic 89–109; BP diastolic 58–72; PULSE 87–106; RESP 15–16; TEMP 36.4–36.7; O2SAT 96–97
[2023-06-23] MEDS: KETOROLAC 30 MG/ML inj IVP ×4 (04:36→22:41)
[2023-06-23 06:37] LABS: Hemoglobin* 9.6 gm/dL (12.0-16.0)
--- NOTE | 2023-06-23 09:05 | PM.OBPNVD1 ---
OB - PN:Subj Subjective Date Seen: 06/23/23 Narrative: Parminder is a 27 y.o. who was admitted to [facility] for induction of labor for thrombosed hemorrhoid. ?She had an uncomplicated NVD.?The patient feels well. ?The pain is well controlled with current medications. ?She has no new complaints. ?She is breast feeding and reports things are going well.? the patient has done well.? Vitals have been stable.? She has remained afebrile.? Has a good appetite, is tolerating a general diet. ?She is voiding without difficulty.? She is passing gas and has not had a bowel movement.?Encouraged BID stool softeners. She is ambulating and denies any dizziness.? Has Small amount of rubra lochia. Patient reported that general surgery was to see her today regarding management of thrombosed hemorrhoid. OB - PN: Obj Exam Physical Exam: Vital signs: Temp Pulse Resp BP Pulse Ox O2 Del Method 97.7 F 88 16 100/65 96 Room Air 06/23/23 06:34 06/23/23 06:34 06/23/23 06:34 06/23/23 06:34 06/23/23 06:34 06/23/23 06:34 Narrative: GENERAL APPEARANCE:? normal affect, alert, no distress MOOD:? appropriate CHEST:? clear to auscultation HEART:? regular rate and rhythm ABDOMEN:? soft, non-tender the uterine fundus is At Umbilicus, Midline and is appropriate for the stage of recovery. PERINEUM:? mild edema of the perineum, there is a Perineal Laceration, that is healing well. EXTREMITIES:? normal and no edema OB - PN: Obj Data Labs Labs: Laboratory Results - last 24 hr 06/23/23 06:17 Hgb 9.6 L OB - PN: A/P Delivery Assessment and Plan (1) care and examination immediately after delivery: Status: Acute (2) Hemorrhoids during : Problem details: General surgery to assess today Status: Acute (3) Lactating mother: Status: Acute (4) Anemia affecting : Status: Acute Plan day: 1 Plan: routine care Comments: Routine care. Anemia. Pt declines iron. Encouraged iron rich foods in diet. Hemorrhoid. General surgery to assess today. Encouraged colace BID. Anticipate discharge tomorrow.
[2023-06-23] MEDS: DOCUSATE SODIUM 100 MG CAPSULE PO (09:18)
--- NOTE | 2023-06-23 10:13 | PM.ANPOST ---
Post Anesthesia Note Post Anesthesia Note Patient seen: Inpatient Respiratory Status: adequate Cardiovascular Status: adequate Mental Status: baseline Pain: adequate Temp: baseline Anesthetic awareness: N/A Complications: none Follow care: none
--- NOTE | 2023-06-23 11:32 | PM.GSCN ---
History of Present Illness Consult details Date Seen: 06/23/23 Consult date: 06/23/23 Narrative: Patient is a 27-year-old female who recently delivered a healthy baby boy. This is her first , which has been complicated by hemorrhoids. She states that around 5 months she developed external bulging tissue and pain. The symptoms started after an episode of vomiting and were worsened by intermittent constipation. She has been eating a high fiber diet and started taking fiber supplements. This is the 1st time that she has ever had hemorrhoids. During the last few weeks of her she had a few flares of external hemorrhoids that were incredibly painful and prevented her from getting up and moving around. The pain was so severe that she was induced for this delivery. A few days earlier she did have rupture of two hemorrhoids with bleeding. She denies any current bleeding or bright red blood with bowel movements. Since her delivery yesterday she does feel like the swelling is still present, but improved. She is not interested in getting any lancing of her hemorrhoids today. Review of Systems Status of ROS: Reports: 6 or more systems reviewed and unremarkable except as noted in History and below [facility] Medical History Bacterial vaginosis ?N76.0 - Acute vaginitis (ICD-10) ?B96.89 - Other specified bacterial agents as the cause of diseases classified elsewhere (ICD-10) Hemangioma of abdominal wall ?D18.09 - Hemangioma of other sites (ICD-10) Pap smear abnormality of cervix/human papillomavirus (HPV) positive ?R87.618 - Other abnormal cytological findings on specimens from cervix uteri (ICD-10) Surgical History History of colposcopy ?Z98.890 - Other specified postprocedural states (ICD-10) Social History Narrative: SOCIAL Education: Bachelors Work: [employer], remoted Partner: Guido Physician Lives with: Guido Pets: dog 2 Abuse: Denies past/present Special Diet: Denies Ok with a blood transfusion: yes Culture or orthodoxy beliefs: denies RISK FACTORS Exercise Times/wk: Walking a few times per week, resistance bands Depression/Anxiety: hx of anxiety; no therapist or medication Mood is feeling Seat Belt Use: Routinely Smoking: Denies past/present Alcohol/day: Denies while ; socially Caffeine: 1st trimester, not since 12 weeks Drug Use: Denies past/present Chicken Pox: Vaccinated, revaccinated as an adult MRSA: Denies What is your current living situation?: I presently have a place to live Problems where you live: no known problems In the past 12 months, utilities in danger of being shut off: no In past 12 months, lack of transportation kept you from medical appts, meetings, work, or getting things needed for daily living: no In the past 12 mos, have been you worried that your food would run out before you had money to buy more?: never true In the past 12 mos, the food you bought just didn't last and you didn't have money to buy more?: never true Smoking Status: Never smoker How often does anyone, including family, friends and others, physically hurt you: never How often does anyone, including family, friends and others, insult or talk down to you: never How often does anyone, including family, friends and others, threaten you with harm: never How often does anyone, including family, friends and others, scream or curse at you: never Little interest or pleasure in doing things: several days Feeling down, depressed, or hopeless: several days Meds Home Medications and Allergies Home Medications Medication Instructions Recorded Confirmed Type PNV 153-FA 400 mcg-om3 35 mg-dha 2 tab PO DAILY 01/19/23 06/21/23 History 25 mg-epa 5 mg-fish oil chew tablet ( Gummies) magnesium oxide 25 mg PO PRN PRN 04/11/23 06/21/23 History Allergies Allergy/AdvReac Type Severity Reaction Status Date / Time No Known Drug Allergies Allergy Verified 06/21/23 20:33 Exam Narrative: Exam Narrative: General: Alert and oriented, no acute distress Respiratory: Equal breath rise bilaterally, maintained on room air CV: Well perfused : Normal external female genitalia. Vaginal bleeding apparent. Cluster of external hemorrhoids right lateral and left lateral. I am able to pinch the tissue without significant discomfort. No evidence of any thrombosed hemorrhoids, necrosis or infection. Internal exam deferred at this time. Const: Vital Signs, click to edit/add: Vital Signs - 24 hr 06/22/23 11:34 06/22/23 11:36 06/22/23 11:38 Temperature Pulse Rate 75 72 86 Pulse Rate [Pulse Oximeter] Respiratory Rate Blood Pressure 120/68 112/64 119/59 L Blood Pressure [Le ft Arm] Pulse Oximetry [facility] 06[facility]/23 11:39 06/22/23 11:40 06/22/23 11:42 Temperature Pulse Rate 95 97 Pulse Rate [Pulse Oximeter] Respiratory Rate Blood Pressure 118/66 112/65 Blood Pressure [Le ft Arm] Pulse Oximetry [facility] 06/22/23 11:44 06/22/23 11:46 06/22/23 11:46 Temperature 97.4 F L Pulse Rate 80 69 Pulse Rate [Pulse Oximeter] Respiratory Rate Blood Pressure 114/68 112/63 Blood Pressure [Le ft Arm] Pulse Oximetry [facility] 06/22/23 11:48 06/22/23 11:49 06/22/23 11:50 Temperature Pulse Rate 71 67 Pulse Rate [Pulse Oximeter] Respiratory Rate Blood Pressure 105/64 108/65 Blood Pressure [Le ft Arm] Pulse Oximetry [facility] 06/22/23 11:52 06/22/23 11:54 06/22/23 11:56 Temperature Pulse Rate 72 86 69 Pulse Rate [Pulse Oximeter] Respiratory Rate Blood Pressure 106/63 111/69 113/63 Blood Pressure [Le ft Arm] Pulse Oximetry [facility] 06/22/23 11:58 06/22/23 11:59 06/22/23 12:00 Temperature Pulse Rate 69 81 Pulse Rate [Pulse Oximeter] Respiratory Rate Blood Pressure 104/62 104/64 Blood Pressure [Le ft Arm] Pulse Oximetry [facility] 06/22/23 12:04 06/22/23 12:05 06/22/23 12:09 Temperature Pulse Rate 75 Pulse Rate [Pulse Oximeter] Respiratory Rate Blood Pressure 98/55 L Blood Pressure [Le ft Arm] Pulse Oximetry 100 97 [facility] 06/22/23 12:10 06/22/23 12:14 06/22/23 12:15 Temperature Pulse Rate 89 67 Pulse Rate [Pulse Oximeter] Respiratory Rate Blood Pressure 95/62 99/57 L Blood Pressure [Le ft Arm] Pulse Oximetry [facility] 06/22/23 12:19 06/22/23 12:21 06/22/23 12:24 Temperature Pulse Rate 71 Pulse Rate [Pulse Oximeter] Respiratory Rate Blood Pressure 103/60 Blood Pressure [Le ft Arm] Pulse Oximetry 100 [facility] 06/22/23 12:25 06/22/23 12:29 06/22/23 12:31 Temperature Pulse Rate 94 71 Pulse Rate [Pulse Oximeter] Respiratory Rate Blood Pressure 102/63 118/70 Blood Pressure [Le ft Arm] Pulse Oximetry [facility] 06/22/23 12:34 06/22/23 12:36 06/22/23 12:42 Temperature Pulse Rate 73 71 Pulse Rate [Pulse Oximeter] Respiratory Rate Blood Pressure 112/68 98/55 L Blood Pressure [Le ft Arm] Pulse Oximetry 100 [facility] 06/22/23 12:46 06/22/23 13:02 06/22/23 13:09 Temperature Pulse Rate 67 82 60 Pulse Rate [Pulse Oximeter] Respiratory Rate Blood Pressure 101/55 L 89/52 L 96/60 Blood Pressure [Le ft Arm] Pulse Oximetry [facility] 06/22/23 13:13 06/22/23 13:14 06/22/23 13:16 Temperature Pulse Rate 71 71 76 Pulse Rate [Pulse Oximeter] Respiratory Rate Blood Pressure 97/52 L 101/55 L 100/59 L Blood Pressure [Le ft Arm] Pulse Oximetry [facility] 06/22/23 13:18 06/22/23 13:20 06/22/23 13:22 Temperature Pulse Rate 71 67 62 Pulse Rate [Pulse Oximeter] Respiratory Rate Blood Pressure 99/58 L 97/55 L 93/51 L Blood Pressure [Le ft Arm] Pulse Oximetry [facility] 06/22/23 13:24 06/22/23 13:26 06/22/23 13:43 Temperature Pulse Rate 66 64 69 Pulse Rate [Pulse Oximeter] Respiratory Rate Blood Pressure 100/59 L 100/62 83/49 L Blood Pressure [Le ft Arm] Pulse Oximetry [facility] 06/22/23 13:57 06/22/23 14:12 06/22/23 14:27 Temperature Pulse Rate 67 66 70 Pulse Rate [Pulse Oximeter] Respiratory Rate Blood Pressure 98/53 L 98/53 L 97/55 L Blood Pressure [Le ft Arm] Pulse Oximetry [facility] 06/22/23 14:43 06/22/23 14:57 06/22/23 15:28 Temperature Pulse Rate 67 74 85 Pulse Rate [Pulse Oximeter] Respiratory Rate Blood Pressure 95/51 L 111/69 103/65 Blood Pressure [Le ft Arm] Pulse Oximetry [facility] 06/22/23 15:42 06/22/23 15:57 06/22/23 16:28 Temperature Pulse Rate 89 83 88 Pulse Rate [Pulse Oximeter] Respiratory Rate Blood Pressure 119/73 117/71 116/73 Blood Pressure [Le ft Arm] Pulse Oximetry [facility] 06/22/23 16:43 06/22/23 16:57 06/22/23 17:05 Temperature Pulse Rate 120 H 97 96 Pulse Rate [Pulse Oximeter] Respiratory Rate Blood Pressure 136/84 116/76 121/71 Blood Pressure [Le ft Arm] Pulse Oximetry [facility] 06/22/23 17:09 06/22/23 17:15 06/22/23 17:19 Temperature Pulse Rate 94 112 H 112 H Pulse Rate [Pulse Oximeter] Respiratory Rate Blood Pressure 134/74 122/76 129/83 Blood Pressure [Le ft Arm] Pulse Oximetry [facility] 06/22/23 17:24 06/22/23 17:29 06/22/23 17:32 Temperature Pulse Rate 103 H 116 H 130 H Pulse Rate [Pulse Oximeter] Respiratory Rate Blood Pressure 117/83 108/76 120/81 Blood Pressure [Le ft Arm] Pulse Oximetry [facility] 06/22/23 17:33 06/22/23 17:36 06/22/23 17:38 Temperature Pulse Rate 131 H Pulse Rate [Pulse Oximeter] Respiratory Rate Blood Pressure 149/72 H Blood Pressure [Le ft Arm] Pulse Oximetry 96 100 [facility] 06/22/23 17:38 06/22/23 17:38 06/22/23 17:38 Temperature Pulse Rate 129 H Pulse Rate [Pulse Oximeter] Respiratory Rate Blood Pressure 206/79 H Blood Pressure [Le ft Arm] Pulse Oximetry 82 L Oxygen Delivery [facility] 06/22/23 17:43 06/22/23 17:43 06/22/23 17:44 Temperature Pulse Rate 116 H Pulse Rate [Pulse Oximeter] Respiratory Rate Blood Pressure 132/91 H Blood Pressure [Le ft Arm] Pulse Oximetry 100 92 Oxygen Delivery [facility] 06/22/23 17:45 06/22/23 17:48 06/22/23 17:50 Temperature Pulse Rate 122 H 129 H 121 H Pulse Rate [Pulse Oximeter] Respiratory Rate Blood Pressure 142/90 H 140/78 H 128/82 Blood Pressure [Le ft Arm] Pulse Oximetry Oxygen Delivery [facility] 06/22/23 17:51 06/22/23 17:56 06/22/23 17:58 Temperature Pulse Rate 125 H 122 H 116 H Pulse Rate [Pulse Oximeter] Respiratory Rate Blood Pressure 126/83 146/60 H 134/70 Blood Pressure [Le ft Arm] Pulse Oximetry Oxygen Delivery [facility] 06/22/23 17:59 06/22/23 18:02 06/22/23 18:04 Temperature Pulse Rate 111 H 115 H 117 H Pulse Rate [Pulse Oximeter] Respiratory Rate Blood Pressure 137/67 127/71 145/80 H Blood Pressure [Le ft Arm] Pulse Oximetry [facility] 06/22/23 18:06 06/22/23 18:11 06/22/23 18:14 Temperature 97.4 F L Pulse Rate 106 H 105 H Pulse Rate [Pulse Oximeter] Respiratory Rate Blood Pressure 129/73 128/73 Blood Pressure [Le ft Arm] Pulse Oximetry 99 Oxygen Delivery [facility] 06/22/23 18:16 06/22/23 18:20 06/22/23 18:24 Temperature Pulse Rate 113 H 100 Pulse Rate [Pulse Oximeter] Respiratory Rate Blood Pressure 140/82 H 121/79 Blood Pressure [Le ft Arm] Pulse Oximetry 100 Oxygen Delivery [facility] 06/22/23 18:29 06/22/23 18:34 06/22/23 18:40 Temperature Pulse Rate 96 107 H 104 H Pulse Rate [Pulse Oximeter] Respiratory Rate Blood Pressure 127/82 130/80 135/80 Blood Pressure [Le ft Arm] Pulse Oximetry Oxygen Delivery [facility] 06/22/23 18:55 06/22/23 19:11 06/22/23 19:20 Temperature 98.7 F Pulse Rate 100 104 H Pulse Rate [Pulse Oximeter] Respiratory Rate Blood Pressure 122/71 123/81 Blood Pressure [Le ft Arm] Pulse Oximetry [facility] 06/22/23 19:29 06/22/23 19:41 06/22/23 19:56 Temperature Pulse Rate 106 H 96 96 Pulse Rate [Pulse Oximeter] Respiratory Rate Blood Pressure 124/58 L 110/60 104/63 Blood Pressure [Le ft Arm] Pulse Oximetry Oxygen Delivery [facility] 06/22/23 20:10 06/22/23 20:26 06/22/23 20:41 Temperature Pulse Rate 93 100 99 Pulse Rate [Pulse Oximeter] Respiratory Rate Blood Pressure 101/58 L 112/58 L 101/63 Blood Pressure [Le ft Arm] Pulse Oximetry Oxygen Delivery [facility] 06/22/23 22:25 06/22/23 22:40 06/22/23 22:55 Temperature Pulse Rate 100 96 86 Pulse Rate [Pulse Oximeter] Respiratory Rate Blood Pressure 118/58 L 117/58 L 114/57 L Blood Pressure [Le ft Arm] Pulse Oximetry Oxygen Delivery [facility] 06/22/23 23:16 06/22/23 23:25 06/22/23 23:40 Temperature Pulse Rate 95 103 H 109 H Pulse Rate [Pulse Oximeter] Respiratory Rate Blood Pressure 109/69 104/55 L 99/57 L Blood Pressure [Le ft Arm] Pulse Oximetry Oxygen Delivery [facility] 06/22/23 23:55 06/23/23 00:10 06/23/23 01:16 Temperature Pulse Rate 111 H 100 Pulse Rate [Pulse Oximeter] 104 H Respiratory Rate 16 Blood Pressure 105/64 104/58 L Blood Pressure [Le ft Arm] 109/72 Pulse Oximetry 96 Oxygen Delivery [facility] Room Air 06/23/23 06:34 Temperature 97.7 F Pulse Rate Pulse Rate [Pulse Oximeter] 88 Respiratory Rate 16 Blood Pressure Blood Pressure [Le ft Arm] 100/65 Pulse Oximetry 96 Oxygen Delivery [facility] Room Air Results Labs Labs: Abnormal lab results 06/23/23 Range/Units 06:17 Hgb 9.6 L (12.0-16.0) gm/dL All other labs normal. Progress Note:A&P Assessment and plan (1) External hemorrhoids without complication: Status: Acute Assessment and Plan: Patient is a 27-year-old female with multiple resolving thrombosed external hemorrhoids. We discussed the natural history of thrombosed hemorrhoids with the pain being greatest in the 1st 48-72 hours and then tapering off over time. I told her that if I can pinch the hemorrhoid without significant pain, she is likely on the ?down slope? of the pain curve. In this situation I leave the hemorrhoids alone, rather than giving her a surgical wound to heal. She does understand that following resolution of a thrombosed hemorrhoid a skin tag may result which can be addressed if bothersome to the patient. At this time I would recommend that she continue with a high-fiber diet/fiber supplementation/increased liquid intake. I have also prescribed stool softeners, senna to be taken b.i.d.. Sitz baths were encouraged as needed for comfort. She can apply external witch jace tuck pads and lidocaine jelly as needed for comfort. For follow-up in surgery clinic as needed.
[2023-06-23] MEDS: SENNOSIDES 1 TAB TABLET PO (20:36)
[2023-06-24] MEDS: KETOROLAC 30 MG/ML inj IVP (04:39)
[2023-06-24] MEDS: DOCUSATE SODIUM 100 MG CAPSULE PO (08:19)
[2023-06-24] MEDS: IBUPROFEN 600 MG TABLET PO (08:19)
[2023-06-24 09:09] VITALS: BP 104/69; PULSE 80; RESP 16; TEMP 36.5; O2SAT 95
--- NOTE | 2023-06-24 09:33 | P.DS_ITS ---
DS: Providers Provider Time Seen by Provider: 09:33 Date Seen: 06/24/23 Date of admission: 06/21/23 16:40 Primary care physician: Not a Local Provider Admitting Clinician: Shama Quiles MD Attending Physician on discharge: Shama Quiles MD Date of Discharge: 06/24/23 DS: Diagnosis Discharge Diagnosis (1) External hemorrhoids without complication: Status: Acute (2) Lactating mother: Status: Acute (3) care and examination immediately after delivery: Status: Acute (4) Elective induction of labor planned: Status: Acute (5) Acute blood loss anemia: Status: Acute Exam Narrative: Exam Narrative: Physical exam: General: No acute distress Psych: Alert and oriented x4, full affect HEENT: Normocephalic, atraumatic Neck: No cervical adenopathy, no thyromegaly Heart: Regular rate and rhythm, no murmur rub or gallop Lungs: Clear to auscultation bilaterally Abdomen: Normoactive bowel sounds, soft, no tenderness, rebound, or guarding, no masses, no hepatosplenomegaly, no hernias Skin: No lesions or rashes Breasts: no nodules or masses, no nipple discharge, no axillary adenopathy Lower extremities: No edema or erythema Pelvic exam: Scant bleeding on pad Const: Vital Signs, click to edit/add: Vital Signs - 24 hr 06/23/23 12:19 06/23/23 16:12 06/23/23 20:22 Temperature 97.5 F L 98.0 F 97.8 F Pulse Rate [Pulse Oximeter] 89 106 H 104 H Respiratory Rate 16 15 16 Blood Pressure [Le ft Arm] 103/66 106/68 89/59 L Pulse Oximetry 96 96 Oxygen Delivery [facility] Room Air Room Air 06/23/23 23:53 06/24/23 09:09 Temperature 97.9 F 97.7 F Pulse Rate [Pulse Oximeter] 87 80 Respiratory Rate 16 16 Blood Pressure [Le ft Arm] 99/62 104/69 Pulse Oximetry 97 95 Oxygen Delivery [facility] Room Air Room Air OB - DS: Summary Hospital Course Hospital Course: The patient is a 27 year old G 1 P 1001 at 38 weeks 4 days gestation that was admitted to the Center on 06/21/23 for elective induction of labor due to painful hemorrhoids. She had an uncomplicated vaginal delivery. She delivered a viable male . She is breast feeding. the patient has done well. She is anemic from acute blood loss anemia but currently asymptomatic. Overnight patient had no complaints. Her pain is well controlled on oral pain medications. She is tolerating a regular diet. She has passed flatus. She is ambulating without difficulty. Lochia is scant. She is urinating without clarke. Patient denies chest pain, SOB, n/v, headache, RUQ pain, vision changes, dizziness. Time spent discussing smoking cessation with patient: 3 to 10 minutes Infant Gender: Male Time Spent with Patient Time attestation: Total time spent providing and/or coordinating discharge services: Discharge Plan Discharge Disposition: Home, Self-Care Date of Admission: 06/21/23 16:40 Attending Provider on Discharge: Mandie Black Primary Care Provider: Provider,Not a Local Condition: Stable Anticipated Discharge Date/Time: 06/24/23 09:42 Discharge Medications: New senna 8.6 mg capsule 8.6 mg PO BID PRN (Reason: constipation) Qty: 90 0RF Rx Instructions: Take to avoid constipation. Can decrease to once daily and/or stop if having >2 stools per day. lidocaine 4 % cream 1 applic topical QID PRN (Reason: pain) Qty: 30 0RF Rx Instructions: Apply to anal area as needed for pain control. Dermoplast (with menthol) 20-0.5 % Aerosol 1 spray topical QID PRN (Reason: skin irritation) 30 Days Qty: 78 1RF acetaminophen 500 mg Tablet 1,000 mg PO Q6H PRN30 Days Qty: 60 0RF docusate sodium 100 mg Capsule 100 mg PO DAILY 30 Days Qty: 30 0RF ibuprofen 600 mg Tablet 600 mg PO Q6H PRN30 Days Qty: 60 0RF Lanolin (HPA) 100 % Cream 1 applic topical Q1H PRN90 Days Qty: 21 0RF sennosides [Senna Lax] 8.6 mg Tablet 8.6 mg PO BID 30 Days Qty: 60 0RF simethicone 80 mg Tablet,Chewable 80 - 160 mg PO Q4H PRN (Reason: gas) 30 Days Qty: 60 0RF lidocaine 4 % cream 1 applic topical QID PRN (Reason: pain) Qty: 25 0RF ferrous sulfate 27 mg iron tablet 27 mg PO QMWF 30 Days Qty: 13 0RF Continued magnesium oxide 240 mg magnesium powder in packet 25 mg PO PRN PRN Gummies 400 mcg-35 mg- 25 mg-5 mg tablet,chewable 2 tab PO DAILY Patient Comments: 4 gummies by mouth daily ferrous sulfate 325 mg (65 mg iron) tablet 325 mg PO Q OTHER DAY Qty: 30 3RF Discharge Orders: Discharge Order (Routine); Ordered 06/24/23 Ordered By: Mandie Black Additional Instructions: A prescription of stool softeners has been sent to the pharmacy. Decrease to once daily or stop if having greater than 2 stools per day. Please continue to drink fluids throughout the day and take your daily fiber supplement. For your hemorrhoids soak in a sitz bath twice daily for comfort. Apply external witch jace and lidocaine gel as needed for pain control. If you have hemorrhoid pain that is worsening or concerns regarding bleeding please contact the General Surgery clinic to make an appointment [phone]. Discharge instructions were reviewed with the patient including signs and symptoms of infection and home going medications. Lifting Restrictions: 20 pounds for [address] while taking narcotic pain medication: Approximately 1 week. Off Work or School for 6 weeks. Nothing vaginally for 6 weeks Symptoms to report to doctor: -Bleeding that saturates more than one pad per hour ?-Passing clots larger than the size of a golf ball ?-Pain not relieved by prescribed medication ?-Fever above 100.4 degrees Fahrenheit ?-A foul vaginal odor ?-Difficulty in emotions, mood and functions ?-Thoughts of hurting yourself and/or ?-Painful, reddened area in your breast ?-Any drainage, redness or tenderness in your IV/epidural site ?-Severe headache that doesn't improve after taking medications ?-Changes in vision, including temporary loss of vision, blurred vision, and/or light sensitivity ?-Upper abdominal pain (usually under ribs on the right side) ?-Decrease in urination or painful, frequent urinating ?-Chest pain ?-Shortness of breath ?-Tenderness or pain with redness and/swelling in the calf(s) of your leg Follow Up with a [facility] provider: * 2 week visit: Answer concerns for infant care, screen for postp artum anxiety/depression. * 6 week visit: Annual exam. consultation services are available to all mothers and babies for the first year after delivery.? To make an appointment, please call [phone]. Follow Up Appointments: Provider,Not a Local [Primary Care Provider] - Forms: [email or web address] Info Instructions
== END 2023-06-24 11:30 | disposition home or self-care (01) | DRG 560 ==
PROVIDERS: Admitting Provider Obstetrics & Gynecology; Visit Provider Obstetrics & Gynecology
DX: O70.0 First degree perineal laceration during delivery (principal); O71.82 Other specified trauma to perineum and vulva; Z3A.38 38 weeks gestation of pregnancy; Z37.0 Single live birth; O99.824 Streptococcus B carrier state complicating childbirth; O22.43 Hemorrhoids in pregnancy, third trimester; O87.2 Hemorrhoids in the puerperium; O99.344 Other mental disorders complicating childbirth; F41.9 Anxiety disorder, unspecified; F32.A Depression, unspecified; R03.0 Elevated blood-pressure reading, without diagnosis of hypertension; O90.81 Anemia of the puerperium; D62 Acute posthemorrhagic anemia
CPT/HCPCS: 01967; 36415; 59200; 76815; 85018; 85025; 86850; 86900; 86901; A9270; C1726; J0131; J0290; J0665; J1885; J2270; J2371; J2405; J2795; J3010; J7120

== ENCOUNTER 2024-08-14 09:08 | Outpatient (CLI) | payer OTHER, SELFPAY ==
--- NOTE | 2024-08-14 09:15 | CRLHL7_ITS ---
For Patients: As a result of the Cures Act, medical imaging exams and procedure reports are released immediately into your electronic medical record. You may view this report before your referring provider. If you have questions, please contact your health care provider. OB ULTRASOUND INDICATION: Dating and viability. TECHNIQUE: Real time grayscale imaging of the fetus was performed. Transvaginal. LMP: 06/16/2024. MARIA GUADALUPE by LMP: 03/23/2025. GA: 8 w, 3 d. Previous US: No. CRL: 0.9 cm. 7 w 0 d. MARIA GUADALUPE: 04/02/2025. FHR: 123 BPM. Gestational sac: 2.2 cm. Yolk sac: 3.3 mm. Right ovary: 4.3 x 2.3 x 2.7 cm. CL. Left ovary: 3.4 x 1.7 x 1.7 cm. IMPRESSION: 1. Single living intrauterine with sonographic gestational age 7 weeks 0 days and sonographic due date 04/02/2025. 2. Incidental corpus luteal cyst right ovary. 3. Right-sided subchorionic hemorrhage measures 1.9 x 1.0 x 1.5 cm. Soham Barrios M.D. Diagnostic Radiologist [email or web address] [email or web address]/Dictated by: Soham Barrios MD @ 08/14/2024 1:02:00 PM (Electronically Signed)
== END 2024-08-14 09:09 | disposition home or self-care (01) ==
LOC: US 09:09
PROVIDERS: Visit Provider Registered Nurse
DX: Z34.91 Encounter for supervision of normal pregnancy, unspecified, first trimester (principal); O20.9 Hemorrhage in early pregnancy, unspecified; O34.81 Maternal care for other abnormalities of pelvic organs, first trimester; N83.11 Corpus luteum cyst of right ovary; Z3A.01 Less than 8 weeks gestation of pregnancy
CPT/HCPCS: 76817; 83021; 86703; 86706; 86803; 86850; 86900; 86901; 87086; 87340; 87491; 87591

== ENCOUNTER 2024-08-14 10:11 | Outpatient (CLI) | payer OTHER, SELFPAY ==
[2024-08-14 14:44] LABS: Chlamydia DNA Amplified* NOT DETECTED (No Detected); GC DNA Amplified* NOT DETECTED (No Detected)
== END 2024-08-14 10:12 | disposition home or self-care (01) ==
PROVIDERS: Visit Provider Registered Nurse
DX: Z34.81 Encounter for supervision of other normal pregnancy, first trimester (principal)
CPT/HCPCS: 83020; 83021; 85660; 86592; 86703; 86704; 86706; 86762; 86787; 86803; 86850; 86900; 86901; 87086; 87340; 87491; 87591

== ENCOUNTER 2024-09-12 09:58 | Outpatient (CLI) | payer OTHER, SELFPAY | END 2024-09-12 09:59 | disposition home or self-care (01) | PROVIDERS: Visit Provider Obstetrics & Gynecology | DX: Z34.81 Encounter for supervision of other normal pregnancy, first trimester (principal) | CPT/HCPCS: 86644; 86645 ==

== ENCOUNTER 2024-10-16 09:37 | Outpatient (CLI) | payer OTHER, SELFPAY | END 2024-10-16 09:38 | disposition home or self-care (01) | LOC: FRMREF 09:39 | PROVIDERS: Visit Provider Obstetrics & Gynecology | DX: B34.9 Viral infection, unspecified (principal) | CPT/HCPCS: 87497 ==

== ENCOUNTER 2024-12-04 13:19 | Outpatient (CLI) | payer OTHER, SELFPAY ==
--- NOTE | 2024-12-04 13:00 | CRLHL7_ITS ---
For Patients: As a result of the Century Cures Act, medical imaging exams and procedure reports are released immediately into your electronic medical record. You may view this report before your referring provider. If you have questions, please contact your health care provider. OB ULTRASOUND SURVEY MARIA GUADALUPE by US: 04/02/2025. GA: 23 w, 0 d. INDICATION: anatomy scan. TECHNIQUE: Real time downey scale imaging of the fetus was performed. Evaluate anatomy. Transabdominal imaging performed. position: Vertex, breech, multiple positions. Cervix: Visualized. Technique: Transabdominal. Length of closed cervix: 5.6 cm. Placenta/cord: Posterior. Technique: Transabdominal. Placenta tip to internal OS: 8.9 cm. Umbilical Cord: 3-vessel cord. Placenta insertion: Marginal (within 2 cm of placenta edge). Amniotic Fluid: 4.2 cm SDP (greater than/equal to: 2- less than 8 cm). SURVEY: Observed Structures. Calvarium/Spine: Cerebellum: 2.6 cm, 25 w 1 d. Cisterna Magna: 6.0 mm. Nuchal Fold: 4.6 mm. Lateral Ventricle: 6.8 mm. CSP: Yes. Midline Falx: Yes. Choroid Plexus: Yes. Spine: Yes. Abdomen: Stomach: Yes. Abd Cord Insertion: Yes. Urinary Bladder: Yes. Kidneys: Yes. Diaphragm: Yes. Face: Nose/lips: Yes. Orbital view: Yes. Profile: Yes. Limbs: Upper Extremities: Yes. Lower Extremities: Yes. Hands: Yes. Feet: Yes. Vascular: 4-Chamber Heart: Yes. LVOT: Yes. RVOT: Yes. 3VV: Yes. 3VTV: Yes. BPD: 5.7 cm. 23 w, 2 d, 56%. HC: 21.0 cm. 23 w, 1 d, 39%. AC: 19.5 cm. 24 w, 1 d, 79%. FL: 3.9 cm. 22 w, 4 d, 26%. FL/AC ratio: 20.09%. HC/AC ratio: 1.08. heart rate: 145 bpm. age by this US: 23 w, 5 d. MARIA GUADALUPE by this US: 03/28/2025. EFW: 596.30 g. Weight: 1 lbs, 5 oz. Percentile by MARIA GUADALUPE: 66%. COMMENTS: There is marginal cord insertion with insertion 1 cm from the placental edge. IMPRESSION: 1. Single live intrauterine gestation at 23 weeks 5 days and MARIA GUADALUPE of 03/28/2025. 2. Estimated weight 596 grams which lies at the 66th percentile. 3. No gross anomalies visualized. 4. Marginal cord insertion with the insertion located 1 cm from the placental edge. Anu Galeano M.D. Diagnostic/Breast Radiologist [email or web address] FREDERICK/jackie mejia/Dictated by: Anu Galeano MD @ 12/09/2024 9:20:00 AM (Electronically Signed)
== END 2024-12-04 13:20 | disposition home or self-care (01) ==
LOC: US 13:19
PROVIDERS: Visit Provider Obstetrics & Gynecology
DX: O43.192 Other malformation of placenta, second trimester (principal); Z3A.23 23 weeks gestation of pregnancy
CPT/HCPCS: 76805

== ENCOUNTER 2025-01-02 13:12 | Outpatient (CLI) | payer OTHER, SELFPAY ==
--- NOTE | 2025-01-02 13:00 | CRLHL7_ITS ---
For Patients: As a result of the Century Cures Act, medical imaging exams and procedure reports are released immediately into your electronic medical record. You may view this report before your referring provider. If you have questions, please contact your health care provider. OB ULTRASOUND FOLLOW-UP/LIMITED, 01/02/2025 CLINICAL HISTORY: Marginal cord insertion. COMPARISON: 12/04/2024, 08/14/2024. TECHNIQUE: Realtime downey scale imaging of the fetus was performed. Transabdominal imaging performed. FINDINGS: MARIA GUADALUPE by US: 04/02/2025. GA: 27 weeks 1 day. Gestation: Single. Cervix: Not visualized. Positioning: Breech, multiple. Amniotic Fluid: 7.4 cm SDP. Placenta: Technique: TA. Placenta Position: Posterior. Dopplers: Heart Rate: 135 bpm. BIOMETRY: BPD: 7.1 cm, 28 weeks 4 days. 84.2% HC: 27.0 cm, 29 weeks 3 days. 88.9% AC: 24.7 cm, 29 weeks 0 days. 89.2% FL: 5.0 cm, 26 weeks 6 days. 25.8% FL/AC Ratio: 20.15% HC/AC Ratio: 1.09. EFW: 1200 grams, 2 lb 10 oz. Age by this US: 28 weeks 3 days. MARIA GUADALUPE by this US: 03/24/2025. Percentile by MARIA GUADALUPE: 81.6% IMPRESSION: 1. Sonographic gestational age 28 weeks 3 days and sonographic due date 03/24/2025. Sonographic age is 9 days ahead of the clinical age. 2. Estimated weight 82nd percentile. Abdominal circumference 89th percentile. Soham Barrios M.D. Diagnostic Radiologist [email or web address] Transcribed: 4:15 pm DW/Dictated by: Soham Barrios MD @ 01/02/2025 2:40:00 PM (Electronically Signed)
== END 2025-01-02 13:13 | disposition home or self-care (01) ==
LOC: US 13:12
PROVIDERS: Visit Provider Obstetrics & Gynecology
DX: O43.192 Other malformation of placenta, second trimester (principal); O36.5920 Maternal care for other known or suspected poor fetal growth, second trimester, not applicable or unspecified; Z3A.27 27 weeks gestation of pregnancy
CPT/HCPCS: 76816

== ENCOUNTER 2025-01-02 14:11 | Outpatient (CLI) | payer OTHER, SELFPAY | END 2025-01-02 14:12 | disposition home or self-care (01) | LOC: NFLDREF 01-07 14:02 | PROVIDERS: Visit Provider Obstetrics & Gynecology | DX: O43.192 Other malformation of placenta, second trimester (principal); Z3A.27 27 weeks gestation of pregnancy | CPT/HCPCS: 86592 ==

== ENCOUNTER 2025-02-12 11:20 | Outpatient (CLI) | payer OTHER, SELFPAY ==
--- NOTE | 2025-02-12 11:45 | CRLHL7_ITS ---
For Patients: As a result of the Century Cures Act, medical imaging exams and procedure reports are released immediately into your electronic medical record. You may view this report before your referring provider. If you have questions, please contact your health care provider. OB ULTRASOUND FOLLOW-UP/LIMITED, 02/12/2025 CLINICAL HISTORY: Marginal cord insertion. TECHNIQUE: Real time downey scale imaging of the fetus was performed. Transabdominal imaging performed. COMPARISON: 01/02/2025, 12/04/2024. FINDINGS: MARIA GUADALUPE by US: 04/02/2025. GA: 33 weeks 0 days. Gestation: Single. Cervix: Not visualized. Positioning: Vertex. Amniotic Fluid: 5.3 cm SDP. Placenta: Technique: TA. Placenta Position: Fundal, posterior. Dopplers: Heart Rate: 135 bpm. BIOMETRY BPD: 8.2 cm, 33 weeks 1 day. 46% HC: 30.9 cm, 34 weeks 3 days. 52% AC: 29.5 cm, 33 weeks 4 days. 66% FL: 6.1 cm, 31 weeks 6 days. 13% FL/AC Ratio: 20.80% HC/AC Ratio: 1.05. EFW: 2117 grams, 4 lb 11 oz. Age by this US: 33 weeks 2 days. MARIA GUADALUPE by this US: 03/31/2025. Percentile by MARIA GUADALUPE: 44% IMPRESSION: 1. Single living intrauterine measures 33 weeks 2 days and sonographic due date 03/31/2025. Good correlation with dates. Normal interval growth. 2. Estimated weight 44th percentile. Abdominal circumference 66th percentile. Soham Barrios M.D. Diagnostic Radiologist [email or web address] Transcribed: 2:25 pm DW/Dictated by: Soham Barrios MD @ 02/12/2025 12:49:00 PM (Electronically Signed)
== END 2025-02-12 11:21 | disposition home or self-care (01) ==
PROVIDERS: Visit Provider Obstetrics & Gynecology
DX: O43.193 Other malformation of placenta, third trimester (principal); Z3A.33 33 weeks gestation of pregnancy
CPT/HCPCS: 76816

== ENCOUNTER 2025-02-26 11:10 | Outpatient (CLI) | payer OTHER, SELFPAY | END 2025-02-26 11:11 | disposition home or self-care (01) | PROVIDERS: Visit Provider Obstetrics & Gynecology | DX: L29.9 Pruritus, unspecified (principal); O99.713 Diseases of the skin and subcutaneous tissue complicating pregnancy, third trimester | CPT/HCPCS: 82239; 84450; 84460 ==

== ENCOUNTER 2025-03-05 13:01 | Outpatient (CLI) | payer OTHER, SELFPAY ==
[2025-03-06 18:11] LABS: Strep B DNA Probe Negative (Negative)
[2025-03-08 16:30] LABS: Strep B Susceptibility Needed? No
== END 2025-03-05 13:02 | disposition home or self-care (01) ==
PROVIDERS: Visit Provider Obstetrics & Gynecology
DX: L29.9 Pruritus, unspecified (principal); O99.713 Diseases of the skin and subcutaneous tissue complicating pregnancy, third trimester
CPT/HCPCS: 82239; 84450; 84460; 87081; 87653

== ENCOUNTER 2025-03-11 12:09 | Outpatient (CLI) | payer OTHER, SELFPAY | END 2025-03-11 12:10 | disposition home or self-care (01) | LOC: NFLDREF 12:10 | PROVIDERS: Visit Provider Obstetrics & Gynecology | DX: O99.713 Diseases of the skin and subcutaneous tissue complicating pregnancy, third trimester (principal); L29.9 Pruritus, unspecified | CPT/HCPCS: 82239; 84450; 84460 ==

== ENCOUNTER 2025-03-19 12:54 | Inpatient (IN) | payer OTHER, SELFPAY ==
[2025-03-19] VITALS (76 sets, daily range): BP systolic 78–147; BP diastolic 45–79; PULSE 71–133; RESP 18–25; TEMP 36.3–36.6; O2SAT 92–99; BMI 26.3
[2025-03-19] MEDS: LACTATED RINGERS 1000 ML 1,000 ML 123 ML IV (14:08)
[2025-03-19 14:12] LABS: Hematocrit* 41.3 % (33.0-51.0); Hemoglobin* 13.9 gm/dL (12.0-16.0); Immature Granulocytes Abs Auto 0.03 K/uL (0.00-0.30); Immature Granulocytes Pct Auto 0.3 %; Mean Corpuscular HGB Conc 34 gm/dL (32-36); Mean Corpuscular Hemoglobin 30 pg (26-34); Mean Corpuscular Volume 90 fL (80-100); RDW Coefficient of Variation % 13.7 % (11.5-15.5); Red Blood Count* 4.57 m/uL (4.00-5.20); White Blood Count* 10.75 K/uL (4.50-11.00)
[2025-03-19] MEDS: OXYTOCIN 30 unit/500 ML in NS 30 UNIT/500 ML BAG IVPB (14:15)
[2025-03-19 14:16] LABS: Lymphocytes Absolute Auto 1.90 K/uL (0.90-2.90); Slide Review Reflex No
--- NOTE | 2025-03-19 16:30 | W.PM.LDBA ---
Subjective History of Present Illness Date Seen: 03/19/25 Narrative: Patient is being admitted to Labor and Delivery for labor augmentation. She is a 29 year old at 38 0/7 weeks gestation. Her full history and physical was dictated by Dr. PATEL on 03/11/25. Please see this for details. Patient was seen in clinic earlier today for routine appointment. Found with external hemorrhoids significantly swollen and protruded similar to her first baby. She has tried many different interventions so far- all preparation H products, steroid cream, sitz baths etc.. This past week pain has significantly limited her mobility; she is unable to carry her toddler and is spending most of the day in bed. She has been experiencing intermittent uterine contractions, cervix checked today and found favorable. Discussed risks vs benefits of waiting another week vs considering it reasonable to proceed with augmentation today. My concerns are the same as in the past, if she is not moving and spending a week in bed she can be at increased risk for blood clots. Also, one of the hemorrhoids did open and she has a scab that looks to have a yellowish discharge, currently no systemic sign of infection-but concern for infection should also be taken into consideration. After shared decision making decision was made to proceed with labor augmentation today. Specific Issues/Plans G 2 P 1 :Guido (he trained with Dr PATEL's ) They live in [place]. H&P by JORGE 03/11/25 #Marginal cord insertion Growth US at 28 and 34 weeks - See below. Both growth US WNL. #Disproportionate femur length - 13%ile < 26%ile < 26%ile - Discussed technically normal finding, likely normal variant (short fetus, margin of error of test) - low likelihood of FGR, acondroplasia, skeletal dysplasia etc. [x] Pt requested level 2 US/MFM [x] f/u Level 2 - normal, nothing further recommended # Itching - AST 51, ALT normal on 03/05 [x] f/u AST/ALT and bile acids: Bile acids 4 (normal) [x ] repeat AST/ALT at next visit: bile acids 4 normal - Liver enzymes NORMAL on 03/11 - AST 26, ALT 18 # First child born with asymptomatic CMV. They inquired referral to Infectious Disease and/or antibody testing. CMV antibody testing ordered 09/12/24 CMV IgG and IgM positive, FU avidity testing c/w infectious episode more than 6 months ago, not associated with current . # History of depression and anxiety. Currently well-managed without medication. # Hepatitis B non immune- given 09/12/24 # Rubella nonimmune. Recommend vaccine. Imagin. 12/04/24 FAS: Variable Lie, SDP 4.2cm. Post. placenta w/o previa. 3 vessel cord with marginal insertion. EFW: 596g, 1#5oz, 66%. No anatomic abnormalities identified. 2. 01/02/25 f/U for EFW: Breech, SDP 7.4cm. EFW: 81.6%, 1200g, 2#10oz. 3. 02/12/25: EFW 2117g at 44%ile - BPD 46%, HC 52%, AC 66%, FL 13%. FHR 135bpm, MVP 5.3cm, vertex. 4. Level 2: Normal visualized anatomy. EFW 2434 g at 53rd percentile, AC 78%. Femur is measured at 63.7 mm, no percentile given. Right lateral placenta, no previa. MVP 4.8 cm. Nothing further recommended. Vaccinations: Flu: 03/05/25 Covid: Completed, not up-to-date. Booster given 02/12. Tdap: 01/29/2025 RSV: 05/25/23 Hep B: 09/12/2024 32 week mental health: 01/29/2025 Last pap: [Only high-risk abnormal pap results in problem list] OB - Problem Based A/P Additional Plan (1) Hemorrhoids during : Status: Acute (2) Marginal insertion of umbilical cord affecting management of mother in second trimester: Status: Acute (3) : Status: Acute Plan 1. IV Oxytocin started, plan to recheck cervix and AROM when able. 2. GBS negative, no need for antibiotic prophylaxis. 3. Plans epidural for pain management. 4. After her last delivery hemorrhoid pain did improve with conservative measures and she did not need surgical intervention. She did complete general surgery consult at that time, will re evaluate need for repeat consult after delivery. 5. Continuous monitoring, episode were baseline did increase to 160, IVFs started and baseline is back to normal. Will continue close monitoring. OB Exam Physical Exam Vital signs: Temp Pulse Resp BP Pulse Ox 97.9 F 83 18 110/57 L 96 03/19/25 14:50 03/19/25 15:50 03/19/25 14:50 03/19/25 15:50 03/19/25 15:50 Detailed Labor and Delivery Exam Patient Gravid: yes Dilation (cm): 2 Effacement (%): 60 Cervix position: mid Consistency: soft Contraction Frequency: Irregular Tachysystole: No Contraction intensity: Mild Fetus (Single) Station: -2 Amniotic Membrane Status: intact Heart Rate Baseline: 135 Monitor Accelerations: Present Monitor Decelerations: None Fci Variability: Moderate (6-25)
[2025-03-19] MEDS: ROPIVACAINE 0.2% 100 ml 100 ML 12 MG EPIDURAL (17:15)
[2025-03-19] MEDS: PHENYLEPHRINE 100 MCG/ML SYRINGE IVP ×8 (17:17→22:31)
[2025-03-19] MEDS: BUPIVACAINE 0.25% PF 10 ML 10 ML ML EPIDURAL (17:22)
--- NOTE | 2025-03-19 17:26 | P.ANBPRC_ITS ---
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) Lactating mother ?Z39.1 - Encounter for care and examination of lactating mother (ICD-10) External hemorrhoids without complication ?K64.4 - Residual hemorrhoidal skin tags (ICD-10) Uterine pain ?N94.89 - Other specified conditions associated with female genital organs and menstrual cycle (ICD-10) Noninflammatory disorder of vagina ?N89.9 - Noninflammatory disorder of vagina, unspecified (ICD-10) Bacterial vaginosis ?N76.0 - Acute vaginitis (ICD-10) ?B96.89 - Other specified bacterial agents as the cause of diseases classified elsewhere (ICD-10) Hemangioma of abdominal wall ?D18.09 - Hemangioma of other sites (ICD-10) Pap smear abnormality of cervix/human papillomavirus (HPV) positive ?R87.618 - Other abnormal cytological findings on specimens from cervix uteri (ICD-10) Surgical History History of colposcopy ?Z98.890 - Other specified postprocedural states (ICD-10) Family History Son CMV (cytomegalovirus infection) Social History Narrative: SOCIAL Education: Bachelors Work: n/a Partner: Guido, Physician Lives with: Guido and child Pets: dog 2 Abuse: Denies past/present Special Diet: Denies Ok with a blood transfusion: yes Culture or rastafarian beliefs: denies RISK FACTORS Depression/Anxiety: hx of anxiety; no therapist or medication Smoking: Denies past/present Alcohol/day: Deniesly Drug Use: Denies past/present Chicken Pox: Vaccinated, revaccinated as an adult MRSA: Denies What is your current living situation?: I presently have a place to live Problems where you live: no known problems In the past 12 months, utilities in danger of being shut off: no In past 12 months, lack of transportation kept you from medical appts, meetings, work, or getting things needed for daily living: no In the past 12 mos, have been you worried that your food would run out before you had money to buy more?: never true In the past 12 mos, the food you bought just didn't last and you didn't have money to buy more?: never true Smoking Status: Never smoker How often does anyone, including family, friends and others, physically hurt you : never How often does anyone, including family, friends and others, insult or talk down to you: never How often does anyone, including family, friends and others, threaten you with harm: never How often does anyone, including family, friends and others, scream or curse at you: never Meds Home Medications and Allergies Home Medications ?Medication ?Instructions ?Recorded ?Confirmed ?Type docosahexaenoic acid 200 mg mg PO 08/14/24 03/19/25 Hi story capsule ( DHA) magnesium 200 mg tablet 200 mg PO QDAY PRN 01/29/25 03/19/25 History Held on 03/19/25. Instructions: Not taking Allergies Allergy/AdvReac Type Severity Reaction Status Date / Time No Known Drug Allergies Allergy Verified 03/19/25 13:05 Results Labs Labs: Laboratory Results - last 24 hr 03/19/25 14:00 WBC 10.75 RBC 4.57 Hgb 13.9 Hct 41.3 MCV 90 MCH 30 MCHC 34 RDW Coeff of Kiana 13.7 Plt Count 199 Neut % (Auto) 73.8 H Lymph % (Auto) 17.4 L [place] % (Auto) 7.7 Eos % (Auto) 0.6 Baso % (Auto) 0.2 Neut # (Auto) 7.90 H Lymph # (Auto) 1.90 [place] # (Auto) 0.80 Eos # (Auto) 0.06 Baso # (Auto) 0.02 Abs Immat Gran (auto) 0.03 Imm/Tot Granulo (auto) 0.3 Blood Type B Positive Antibody Screen NEGATIVE Vital Signs Vital Signs: Last Vital Signs Temp 97.6 F 03/19/25 17:14 Pulse 116 H 03/19/25 17:24 Resp 25 H 03/19/25 17:14 BP 117/64 03/19/25 17:24 Pulse Ox 98 03/19/25 17:25 Weight: 76.294 kg Height: 170.18 cm Anesthesia Procedures Epidural Insertion Patient Location: OB Start Time: 16:45 Stop Time: 17:45 Start Date: 03/19/25 Stop Date: 03/19/25 Reason for Block: procedure for pain Patient Position: sitting Performed By: Jaime Ritchie Preanesthetic Checklist: IV checked, risks and benefits discussed, monitors and equipment checked, pre-op evaluation, timeout performed and anesthesia consent Prep: chlorhexidine gluconate Monitoring: blood pressure monitoring, continuous pulse oximetry and heart rate Approach: midline Vertebral Space: lumbar (1-5) Epidural Technique: ANURADHA saline Needle Type: Tuohy needle Injection Technique: continuous catheter Needle gauge: 17 Needle Length (cm): 10 cm Needle Insertion Depth (cm): 7 Catheter Gauge: 19 Catheter Type: multi-orifice Catheter at skin depth (cm): 13 Test Dose Result: negative and lidocaine 1.5% with epinephrine 1 to 200,000
[2025-03-19] MEDS: LACTATED RINGERS 1000 ML 1,000 ML 125 ML IV ×2 (17:56→22:33)
--- NOTE | 2025-03-19 21:25 | P.OBPN_ITS ---
Subjective Date Seen: 03/19/25 Narrative: Okay Objective Vital Signs: Last Vital Signs Temp 97.4 F L 03/19/25 21:18 Pulse 101 H 03/19/25 21:14 Resp 25 H 03/19/25 21:18 BP 95/58 L 03/19/25 21:14 Pulse Ox 96 03/19/25 21:03 Pelvic Exam Dilation (cm): 6 Effacement (%): 80 Station: -1 Contractions Monitor mode: External Contraction pattern: Regular Contraction intensity: Mild Pitocin Rate (mU/min): 8 Assessment Assessment: induction ongoing Station: -1 Amniotic Membrane Status: AROM (Questionable PROM?) Status: Category l Heart Rate Baseline: 135 Public Affairs Officer Variability: Moderate (6-25) Monitor Accelerations: Present Monitor Decelerations: None Maternal Status: Stable. Plan Plan: At around 7pm I re checked patient, she had epidural in place and was feeling much comfortable w/o pain associated to hemorrhoids. Cervix was found 4cm and recommendation was for AROM. I palpated what I believe to be membranes that felt flushed to baby's head. I tried to open a small window with the AmniHook but felt I was unable to do so at the moment and wanted to give some time until the next check and see if some amniotic fluid accumulated and I was able to AROM. Upon re evaluation at around 9pm I rechecked her and this time I was unable to palpate membranes. Nurse had been monitoring and she showed me some mild bloody show that she had in this time frame but nothing that seemed to be consistent with amniotic fluid. Patient states that yesterday and today she felt more discharge that she believed to be part of the topical medications that she had been placing for hemorrhoids so did not pay too much attention to it. I completed a bedside US and could only find 1 pocket of amniotic fluid of 1cm. At this moment hard to tell if she has been ruptured for a longer amount of time. Will treat as suspicion for PROM. No sign or concern for infection has come up until this moment- no fever, no fundal tenderness, no abnormal malodorous vaginal discharge, no persistent tachycardia. Patient has had mild tachycardia that has worsened after placement of epidural and hypotension for which she has been treated with multiple doses of Phenylephrine/Ephedrine. monitoring has been category 1, initially had a transitory episode of FHR baseline in the 160s which would not be even considered tachycardia, and this completely resolved after a fluid bolus. I talked with promotions manager THREAD MACHINE OPERATOR so that we are all aware and remain vigilant for signs of infection, possibility of PROM. Otherwise, she has continued to progress adequately. Bbay is OP and we are trying some position changes at the moment. Will re evaluate again at around 11pm if no additional significant changes.
[2025-03-19] MEDS: ePHEDrine sulfate 5 MG/ML inj 10 MG IVP (21:54)
[2025-03-19] MEDS: ONDANSETRON 2 MG/ML inj 4 MG IV (23:33)
--- NOTE | 2025-03-19 23:35 | W.PM.OBVAGDE ---
OB Procedure Vag Delivery Mother Details Mother Details: The patient is a 29 year-old, 2, Para 1, admitted on 03/19/25 at 38 0/7 Days gestation. Labor augmentation started with IV Oxytocin. Epidural was placed and afterwards attempt at AROM was unsuccessful. With next check suspicion for PROM. Labor progressing well and no sign or concern for infection. : 2 Para: 2 Weeks Gestation: 38 Admission Date: 03/19/25 Additional Details Amniotic Membrane Status: AROM (Questionable PROM 03/18/25, uncertain time most likely in am) Amniotic Membrane Rupture Date: 03/18/25 Analgesia/Anesthesia Type: Epidural Waterbirth: No Pitcoin: Yes Intrapartal Events: Labor Augmentation and ROM >18 Hours (Possibility, uncertain at this time. ) Induction Method: per pitocin protocol Delivery augmentation: pitocin Labor Onset: 17:00 Complete: 22:37 Pushin:44 Heart: heart tones during second stage were category 2, deep variable decelerations while pushing, good recovery in between contractions and progressive descent noted. Delivery Details Delivery Date: 03/19/25 Delivery Time: 23:15 Route of delivery: Infant Gender: Male Infant Viability: Alive; Heart Rate Present Position at Delivery: OA Delivery Details: Delivered via spontaneous vaginal delivery. was placed on maternal abdomen.? Cord was clamped and cut after a 30-60 second delay. Nose and mouth were bulb suctioned.? weight pending. 1 Minute Interval Total Score: 9 5 Minute Interval Total Score: 9 Additional Details Shoulder Dystocia: No Placenta Delivery Time: 23:20 Placental Delivery Description: Spontaneous Procedure Done: Global Blood Loss: 50 Laceration: None Blood Loss Measurement Type: EBL Bakri Used: No Sponge/Need Count Correct: Yes Cord Vessel Description: 3 Vessels Event Summary Status: Mother and were stable after delivery. Disposition: floor
[2025-03-20] VITALS (12 sets, daily range): BP systolic 94–113; BP diastolic 54–78; PULSE 65–88; RESP 15–18; TEMP 36.3–36.6; O2SAT 96–98
[2025-03-20] MEDS: ONDANSETRON 2 MG/ML inj 4 MG IV (00:07)
[2025-03-20] MEDS: IBUPROFEN 600 MG TABLET PO ×4 (00:26→19:25)
[2025-03-20 05:47] LABS: Hemoglobin* 12.5 gm/dL (12.0-16.0)
[2025-03-20] MEDS: ACETAMINOPHEN 500 MG TABLET 1000 MG PO ×3 (08:17→22:48)
[2025-03-20] MEDS: DOCUSATE SODIUM 100 MG CAPSULE PO (08:17)
--- NOTE | 2025-03-20 09:06 | P.OBPN_ITS ---
OB - PN:Subj Subjective Time Seen by Provider: 09:06 Date Seen: 03/20/25 Interval history: Day 1:? Vaginal Delivery at 38 and 0/7 weeks.?IOL for hemorrhoid pain. ?? Complications:? none? Parminder feels well.? Her pain is well controlled with current medications.? She has no new complaints.? Urinary output is adequate and she is voiding without difficulty.? Has a good appetite, is tolerating a general diet, is passing flatus, and has not had a bowel movement.? Has moderate amount of rubra lochia.? She is ambulating well.?Hemorrhoid pain is improving PP, has not used any comfort measures yet, did not use hemorrhoid suppositories during her . Patient comments OB post-: no complaints Grant infant status: and doing well feeding status: exclusively OB - PN: Obj Exam Physical Exam: Vital signs: Temp Pulse Resp BP Pulse Ox O2 Del Method 97.9 F 67 15 99/59 L 97 Room Air 03/20/25 08:06 03/20/25 08:06 03/20/25 08:06 03/20/25 08:06 03/20/25 08:06 03/20/25 08:06 Narrative: GENERAL APPEARANCE:? normal affect, alert, no distress? MOOD:? appropriate? CHEST:? clear to auscultation and percussion? HEART:? regular rate and rhythm? BREASTS: soft, nontender, no erythema, nipples intact? ABDOMEN:? soft, non-tender the uterine fundus is firm and is appropriate for the stage of recovery.? PERINEUM:? moderate edema of the perineum, intact.? EXTREMITIES:? normal and no edema? OB - PN: Obj Data Labs Labs: Laboratory Results - last 24 hr 03/19/25 03/20/25 14:00 05:30 WBC 10.75 RBC 4.57 Hgb 13.9 12.5 Hct 41.3 MCV 90 MCH 30 MCHC 34 RDW Coeff of Kiana 13.7 Plt Count 199 Neut % (Auto) 73.8 H Lymph % (Auto) 17.4 L [place] % (Auto) 7.7 Eos % (Auto) 0.6 Baso % (Auto) 0.2 Neut # (Auto) 7.90 H Lymph # (Auto) 1.90 [place] # (Auto) 0.80 Eos # (Auto) 0.06 Baso # (Auto) 0.02 Abs Immat Gran (auto) 0.03 Imm/Tot Granulo (auto) 0.3 Blood Type B Positive Antibody Screen NEGATIVE OB - PN: A/P Delivery Assessment and Plan (1) care and examination of lactating mother: Status: Acute Assessment and Plan: 29 year old on day 1.? 1. cares.? 2. Anticipate discharge tomorrow.? (2) Hemorrhoids during : Status: Acute Assessment and Plan: Ordered topical hydrocortisone and lidocaine; unable to order phenylephrine suppositories. Advised to use ice packs to perineum to reduce swelling of labia and hemorrhoid inflammation/discomfort. Plan day: 1 Plan: routine care
[2025-03-21 04:00] VITALS: BP 95/58; PULSE 77; RESP 16; TEMP 36.7; O2SAT 97
--- NOTE | 2025-03-21 07:35 | P.DS_ITS ---
DS: Providers Provider Date Seen: 03/21/25 Date of admission: 03/19/25 12:54 Primary care physician: Not a Local Provider Admitting Clinician: Shama Quiles MD Attending Physician on discharge: Shama Quiles MD Date of Discharge: 03/21/25 DS: Diagnosis Discharge Diagnosis (1) Hemorrhoids, : Status: Acute (2) care and examination of lactating mother: Status: Acute (3) Depression: Status: Acute (4) Anxiety: Status: Acute Exam Narrative: Exam Narrative: GENERAL APPEARANCE:? normal?affect, alert, no distress? MOOD:? appropriate? CHEST:? clear?to auscultation and percussion? HEART:? regular?rate and rhythm? BREASTS: soft, nontender, no erythema, nipples intact? ABDOMEN:? soft, non-tender?the uterine?fundus is?U/1?and is?appropriate for?the stage of recovery.? PERINEUM:? mild?edema of the perineum, there is?a?intact perineum?that?is healing?well.? EXTREMITIES:? normal?and no edema? Const: Vital Signs, click to edit/add: Vital Signs - 24 hr 03/20/25 08:06 03/20/25 13:28 03/20/25 17:59 Temperature 97.9 F 97.7 F 97.4 F L Pulse Rate [Pulse Oximeter] 67 74 65 Respiratory Rate 15 16 16 Blood Pressure [Le ft Arm] 99/59 L 100/65 94/59 L Pulse Oximetry 97 97 98 Oxygen Delivery Me thod Room Air Room Air Room Air 03/20/25 22:50 03/21/25 04:00 Temperature 97.8 F 98.1 F Pulse Rate [Pulse Oximeter] 73 77 Respiratory Rate 16 16 Blood Pressure [Le ft Arm] 100/60 95/58 L Pulse Oximetry 97 97 Oxygen Delivery Me thod Room Air Room Air Documenting provider has reviewed patient's vital signs: yes OB - DS: Summary Hospital Course Hospital Course: The patient is a 29 year old G 2 P 2 at 38.0 weeks gestation that was admitted to the Center on 03/19/25 for elective labor augmentation. She had an uncomplicated vaginal delivery. She delivered a viable male . She is breast feeding and feels it is going good so far. the patient has done well. Her?pain is well controlled with current medications.??She has no new complaints.??Urinary output is?adequate?and she is voiding without difficulty.??Has?a good appetite, is tolerating a general diet, is passing flatus, and has?had a bowel movement.??Has?scant?amount?of rubra lochia.??She?is ambulating?well. Peripartum Data delivery method: Vaginal Laceration description: None Episiotomy description: None complications: none Gender: Male Discharge Plan: Home Status at Discharge Functional status at discharge: independent ambulation Overall status at discharge: patient is progressing back to baseline Time Spent with Patient Time attestation: Total time spent providing and/or coordinating discharge services: Discharge Plan Discharge Disposition: Home, Self-Care Date of Admission: 03/19/25 12:54 Attending Provider on Discharge: Loida Arora Primary Care Provider: Provider,Not a Local Condition: Stable Anticipated Discharge Date/Time: 03/21/25 09:00 Discharge Medications: New docusate sodium 100 mg Capsule 100 mg PO DAILY Qty: 120 0RF ibuprofen 600 mg Tablet 600 mg PO Q6H PRNQty: 90 0RF hydrocortisone 2.5 % cream 1 applic topical BID PRN (Reason: hemorrhoids) 7 Days Qty: 20 0RF Rx Instructions: Apply sparingly up to twice daily. Do not use for longer than 1 week. Continued DHA 200 mg capsule 200 mg PO DAILY magnesium 200 mg tablet 200 mg PO QDAY PRN Discharge Orders: Discharge Order (Routine); Ordered 03/21/25 Ordered By: Loida Arora Patient Education: OB Vaginal/Breast Feeding Additional Instructions: Discharge instructions were reviewed with the patient including signs and symptoms of infection and home going medications Nothing vaginally for 6 weeks: no tampons or intercourse Do not drive while taking narcotic pain medication(s) Off Work or School for 8 weeks Symptoms to report to doctor: * Bleeding that saturates more than one pad per hour * Passing clots larger than the size of a golf ball * Pain not relieved by prescribed medication * Fever above 100.4 degrees Fahrenheit * A foul vaginal odor * Difficulty in emotions, mood, and functions * Thoughts of hurting yourself and/or * Painful, reddened area in your breast * Any drainage, redness, or tenderness in your IV/epidural site * Severe headache that doesn't improve after taking medications * Changes in vision, including temporary loss of vision, blurred vision, and/or light sensitivity * Upper abdominal pain (usually under ribs on the right side) * Decrease in urination or painful, frequent urinating * Chest pain * Shortness of breath * Tenderness or pain with redness and/swelling in the calf(s) of your leg 2-week visit: discuss infant feeding concerns, review control options and screen for anxiety/depression. 6-week visit for an annual exam. consultation services are available to all mothers and babies for the first year after delivery.? To make an appointment, please call [phone]. Activity Level: Activity as Tolerated Discharge Diet: Regular Follow Up Appointments: [facility] [Provider Group] Provider,Not a Local [Primary Care Provider, Family Practice] Forms: [employer] Info Instructions
[2025-03-21] MEDS: DOCUSATE SODIUM 100 MG CAPSULE PO (08:09)
[2025-03-21] MEDS: IBUPROFEN 600 MG TABLET PO (08:13)
== END 2025-03-21 10:11 | disposition home or self-care (01) | DRG 806 ==
PROVIDERS: Admitting Provider Obstetrics & Gynecology; Visit Provider Obstetrics & Gynecology
DX: O42.02 Full-term premature rupture of membranes, onset of labor within 24 hours of rupture (principal); O22.43 Hemorrhoids in pregnancy, third trimester; Z37.0 Single live birth; O99.892 Other specified diseases and conditions complicating childbirth; I95.89 Other hypotension; R00.0 Tachycardia, unspecified; O99.344 Other mental disorders complicating childbirth; F32.A Depression, unspecified; F41.9 Anxiety disorder, unspecified; Z3A.38 38 weeks gestation of pregnancy
CPT/HCPCS: 01967; 36415; 76815; 85018; 85025; 86592; 86850; 86900; 86901; A9270; J0665; J2405; J2795; J7120

== ENCOUNTER 2025-04-23 10:54 | Outpatient (CLI) | payer OTHER, SELFPAY | END 2025-04-23 10:55 | disposition home or self-care (01) | PROVIDERS: Visit Provider Registered Nurse | DX: E04.9 Nontoxic goiter, unspecified (principal) | CPT/HCPCS: 84439; 84443 ==